=== PATIENT | female | born 1975 | race Caucasian/White ===

== ENCOUNTER 2016-05-12 06:30 | Emergency (ER) | payer OTHER ==
[~2016-05-12 06:30] MED LIST: BENA25TA4 PO; CIPR500T89 PO; COLA100C PO; DIFL150T PO; FLAG500T PO; GLYB5TAB5 PO; IBUP600T26 PO; INSULANT SC; METF1000 PO; MOM30SS PO; OXYC1TAB23 PO; OXYCO5TA PO; PERCOCET PO; PRIN10TA PO; TYLE325T5 PO; ZOFR20TA PO
[2016-05-12] MEDS ORDERED: METOCLOPRAMIDE INJ 10MG/2ML VIAL (J2765) As Ordered ONE (07:34)
[2016-05-12] MEDS ORDERED: diphenhydrAMINE INJ 50MG/ML VIAL (J1200) As Ordered ONE (07:34)
[2016-05-12 07:57] LABS: BASO # 0.2 K/mm3 (0.0-0.2); BASO % 1.4 % (0.0-1.0); EOS # 0.4 K/mm3 (0.0-0.50); EOS % 3.3 % (0.0-3.0); LARGE UNSTAINED CELL # 0.2 K/mm3 (0.0-0.4); LARGE UNSTAINED CELL % 1.8 % (0.0-4.0); LYMPH # 3.6 K/mm3 (1.5-4.5); LYMPH % 28.5 % (24.0-44.0); MEAN CORPUSCULAR HEMOGLOBIN 31.6 pg (27.0-33.0); MEAN CORPUSCULAR HGB CONC 35.6 g/dl (32.0-36.5); MEAN CORPUSCULAR VOLUME 88.8 fl (80.0-96.0); MONO # 0.5 K/mm3 (0.0-0.8); MONO % 4.2 % (0.0-5.0); NEUTROPHILS # 7.2 K/mm3 (1.8-7.7); NEUTROPHILS % 60.9 % (36.0-66.0); PLATELET COUNT, AUTOMATED 316 k/mm3 (150-450); RED CELL DISTRIBUTION WIDTH 12.6 % (11.5-14.5); WHITE BLOOD COUNT 11.9 K/mm3 (4.0-10.0)
[2016-05-12 08:25] LABS: ALBUMIN 3.7 GM/DL (3.2-5.2); ALBUMIN/GLOBULIN RATIO 1.42 (1.00-1.93); ALKALINE PHOSPHATASE 86 U/L (45-117); ALT/SGPT 23 U/L (12-78); AMYLASE 32 U/L (25-115); ANION GAP 11 MEQ/L (8-16); AST/SGOT 5 U/L (15-37); BILIRUBIN,DIRECT 0.1 MG/DL (0.0-0.2); BILIRUBIN,TOTAL 0.5 MG/DL (0.2-1.0); BLOOD UREA NITROGEN 14 MG/DL (7-18); CALCIUM LEVEL 9.1 MG/DL (8.5-10.1); CARBON DIOXIDE LEVEL 25 MEQ/L (21-32); CHLORIDE LEVEL 101 MEQ/L (98-107); CREATININE FOR GFR 0.51 MG/DL (0.55-1.02); GLOMERULAR FILTRATION RATE > 60.0 (>60); GLUCOSE, FASTING 318 MG/DL (70-105); SODIUM LEVEL 137 MEQ/L (136-145); TOTAL PROTEIN 6.3 GM/DL (6.4-8.2)
[2016-05-12] MEDS ORDERED: ISOVUE-370 76% 100ML VIAL (Q9967) As Ordered ONE (08:42)
--- NOTE | 2016-05-12 10:29 | REP ---
CT abdomen and pelvis, 05/12/2016: Indication: Appendicitis. Comparison: CT abdomen and pelvis 03/13/2016, 12/11/2015, 07/13/2012.Comparison also made with intraoperative cholangiogram 07/12/2012 Technique: Following IV contrast injection 100 ml Isovue 370 mg/ml, 3 mm continuous spiral axial sections performed through the abdomen and pelvis. Findings: Lung bases are clear bilaterally. Minimal dependent atelectasis present in the lung bases bilaterally. Liver, spleen, pancreas are unremarkable. Gallbladder is surgically absent. Adrenal glands are normal. Kidneys are without hydronephrosis or obstructing ureteral calculi. The stomach is contracted. The small bowel is of normal caliber without obstruction. Abdominal aorta is of normal course and caliber. Atherosclerotic changes are noted in the aorta. The uterus is within normal limits for age. There are a few small right ovarian follicles. There is no free fluid in cul-de-sac and no evidence of free intraperitoneal air. The colon is unremarkable. There is no free air. Appendix is without inflammation. Impression: No evidence of appendicitis. Prior cholecystectomy. Surgical clips are noted within the right upper quadrant. Signed by Shannon Cason MD 05/12/2016 06:22 P
--- NOTE | 2016-05-12 10:51 | EDDOCDS ---
Physician Documentation [facility] Name: Peggy Garcia Age: 40 yrs Sex: Female : 1975 Arrival Date: 05/12/2016 Time: 06:30 Bed 7 Private MD: Disposition: 05/12/16 10:36 Discharged to Home/Self Care. Impression: Right lower quadrant abdominal tenderness, Urinary tract infection, site not specified. - Condition is Stable. - Discharge Instructions: Urinary Tract Infection, Abdominal Pain, Women. - Prescriptions for etodolac 200 mg Oral Capsule - take 1 capsule by ORAL route 3 times per day; 30 capsule. Pyridium 200 mg Oral Tablet - take 1 tablet by ORAL route every 8 hours for 3 days; 9 tablet. Macrobid 100 mg Oral Capsule - take 100 milligram by ORAL route every 12 hours for 10 days; 20 capsule. - Medication Reconciliation, Local Pharmacy Hours form. - Follow up: Private Physician; When: Call to arrange an appointment; Reason: Further diagnostic work-up, Recheck today's complaints, Continuance of care. Follow up: Marvin Severino; When: Call to arrange an appointment; Reason: Further diagnostic work-up, Recheck today's complaints, Continuance of care. - Problem is new. - Symptoms have improved. Historical: - Allergies: No known drug Allergies; - Home Meds: 1. Lantus 100 unit/mL Sub-Q soln 36 unit nightly noncompliant 2. metformin 500 mg ER Oral (Last dose: 05/11/2016 22:00) 3. novalog Unknown after meals sliding scale - PMHx: Diabetes - NIDDM: uncontrolled; - PSHx: Tubal ligation; Tonsillectomy; Cholecystectomy; left ovary and tube removal; - Social history: Smoking status: Patient uses tobacco products, current every day smoker. No barriers to communication noted, The patient speaks fluent Ukrainian, Speaks appropriately for age, Preferred Language: Ukrainian. - Family history: Not pertinent. - : The pt / caregiver states he / she is not on anticoagulants. Home medication list is obtained from the patient. - Exposure Risk Screening:: None identified. 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 3 in. (160.02 cm) (R); Pain 8/10; 10:18 BP 142 / 75; Pulse 92; Resp 16; Temp 97.4(O); Pulse Ox 97% on R/A; Pain 8/10; kr3 06:43 Body Mass Index 30.29 (77.56 kg, 160.02 cm) lf1 MDM: 07:29 NS 0.9% 1000 ml IV at bolus once ordered. btw 07:29 IV Saline Lock ordered. btw 07:29 Undress patient appropriately for examination ordered. btw 07:29 Metoclopramide 20 mg IV at 80 mg/hr once over 15 mins ordered. btw 07:29 diphenhydrAMINE 50 mg IVP once ordered. btw 07:30 Amylase Ordered. EDMS 07:30 Basic Metabolic Profile Ordered. EDMS 07:30 CBC with Diff Ordered. EDMS 07:30 Lipase Ordered. EDMS 07:30 Liver Profile Ordered. EDMS 07:30 Urinalysis Ordered. EDMS 07:30 Urine Culture Ordered. EDMS 07:30 CT ABD & PELVIS: IV Contrast Only Ordered. EDMS 07:30 NOTHING BY MOUTH+DIET ordered. EDMS 07:33 UCG by Nursing ordered. btw 08:43 Basic Metabolic Profile Reviewed. btw 08:43 CBC with Diff Reviewed. btw 08:43 Liver Profile Reviewed. btw 08:43 Urinalysis Reviewed. btw 08:43 Amylase Reviewed. btw 08:43 Lipase Reviewed. btw 09:44 Financial registration complete. pm4 09:45 [facility] [place] Payment Agreement was scanned into [employer] and attached to record. pm4 Point of Care Testing: Urine : 08:16 hCG Reading: Negative; kr3 Ranges: Administered Medications: 07:45 Drug: NS 0.9% 1000 ml [sodium chloride 0.9 % intravenous solution] Route: IV; Rate: kr3 bolus; Site: right antecubital; 10:49 Follow up: IV Status: Infusion discontinued; IV Intake: 900ml kr3 07:45 Drug: diphenhydrAMINE 50 mg [diphenhydramine 50 mg/mL injection solution (1 mL)] Route: kr3 IVP; Site: right antecubital; 08:44 Follow up: Response: No Adverse Reaction kr3 07:48 Drug: Metoclopramide 20 mg [metoclopramide 5 mg/mL injection solution] Route: IV; Rate: kr3 80 mg/hr; Infused Over: 15 mins; Site: right antecubital; 08:44 Follow up: IV Status: Completed infusion kr3 Signatures: Dispatcher [employer] Tiff Borja RN RN kr3 Desiree Green RN RN lf1 Waqar Urbano, MARIA ELENA PA btw Josh Chery, Reg Reg pm4 The chart was reviewed and I authenticate all verbal orders and agree with the evaluation and treatment provided.Corrections: (The following items were deleted from the chart) 07:27 07:23 Accucheck ordered. delio kebede Attachments: 09:45 [facility] Payment Agreement pm4 CRISTINA
--- NOTE | 2016-05-12 10:51 | EDDOCDS ---
Nurse's Notes [facility] Name: Peggy Garcia Age: 40 yrs Sex: Female : 1975 Arrival Date: 05/12/2016 Time: 06:30 Bed 7 Private MD: Diagnosis: Right lower quadrant abdominal tenderness;Urinary tract infection, site not specified Presentation: 05/12 06:43 Presenting complaint: Patient states: Right lower quadrant pain that began at 0230 this lf1 morning with nausea and vomiting. Pt reports she took some Zofran and the nausea has improved but the pain is worse. Pain is currently 8/10 and characterized as sharp. Risk factors: the patient reports no vaginal bleeding. Adult Sepsis Screening: The patient does not have new or worsening altered mentation. Patient's respiratory rate is less than 22. 06:43 Acuity: AGUSTO Level 3 lf1 06:47 Adult Sepsis Screening: Systolic blood pressure is greater than 100. Patient has a lf1 qSOFA score of 0- Negative Sepsis Screen. Suicide/Homicide risk assessment- the patient denies having any suicidal and/or homicidal ideations and does not present with any other emotional, behavioral or mental health complaints. Status: Patient is not a septic tank servicer or dependent. Transition of care: patient was not received from another setting of care. 06:47 Method Of Arrival: Walkin/Carried/Asstd lf1 Triage Assessment: 06:49 General: Appears obese, uncomfortable, Behavior is restless. Pain: Location: right lf1 lower quadrant Pain currently is 8 out of 10 on a pain scale. Quality of pain is described as sharp. HIV screening NA for this visit Offered previously. Neurological: Level of Consciousness is awake, alert, Oriented to person, place, time. EENT: No deficits noted. Cardiovascular: Chest pain is denied. Respiratory: Airway is patent. GI: Reports lower abdominal pain, Denies nausea. : Denies burning with urination, urinary frequency. Derm: Skin is normal. Injury Description: No known injury. 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 Lantus 100 unit/mL Sub-Q soln 36 unit nightly noncompliant 2. metformin 500 mg ER Oral (Last dose: 05/11/2016 22:00) 3. novalog Unknown after meals sliding scale - PMHx: Diabetes - NIDDM: uncontrolled; - PSHx: Tubal ligation; Tonsillectomy; Cholecystectomy; left ovary and tube removal; - Social history: Smoking status: Patient uses tobacco products, current every day smoker. No barriers to communication noted, The patient speaks fluent Palauan, Speaks appropriately for age, Preferred Language: Palauan. - Family history: Not pertinent. - : The pt / caregiver states he / she is not on anticoagulants. Home medication list is obtained from the patient. - Exposure Risk Screening:: None identified. Screenin:51 Screening information is obtained from the patient. Fall risk: No risks identified. lf1 Assistance ADL's: requires no assistance with activities of daily living. Abuse/DV Screen: The patient / caregiver reports he/she is: not in a situation that causes fear, pain or injury. Nutritional screening: No deficits noted. Advance Directives: Currently, there is no health care proxy. home support is adequate. Assessment: 07:52 General: Appears uncomfortable, Behavior is cooperative. Pain: Location: right lower kr3 quadrant Pain currently is 10 out of 10 on a pain scale. Neurological: No deficits noted. Respiratory: Respiratory effort is even, unlabored. GI: Abdomen is obese, Bowel sounds present X 4 quads. Abd is soft X 4 quads Abd is tender to palpation in right lower quadrant Denies nausea since taking Zofran at 4:30. Derm: Skin is normal. 08:07 Reassessment: Patient states feeling better. Pain: Pain currently is 6 out of 10 on a kr3 pain scale. 09:30 Reassessment: Patient appears in no apparent distress at this time. Adult Sepsis kr3 Screening: The patient does not have new or worsening altered mentation. Patient's respiratory rate is less than 22. Systolic blood pressure is greater than 100. Patient has a qSOFA score of 0- Negative Sepsis Screen. Pain: Location: right lower quadrant Pain currently is 6 out of 10 on a pain scale. GI: Denies nausea. Derm: Skin is normal. 10:19 Reassessment: pain has returned, 12/16. Provider notified. Patient instructed NPO kr3 status. Pain: Location: right lower quadrant. 10:50 Reassessment: Patient states feeling better. Pain: Location: right lower quadrant Pain kr3 currently is 6 out of 10 on a pain scale. Respiratory: Respiratory effort is even, unlabored. Derm: Skin is pink, warm & dry. Vital Signs: 06:43 BP 141 / 84; Pulse 113; Resp 20; Temp 98.9(TE); Pulse Ox 99% on R/A; Weight 77.56 kg; lf1 Height 5 ft. 3 in. (160.02 cm) (R); Pain 8/10; 10:18 BP 142 / 75; Pulse 92; Resp 16; Temp 97.4(O); Pulse Ox 97% on R/A; Pain 8/10; kr3 06:43 Body Mass Index 30.29 (77.56 kg, 160.02 cm) [facility] Vitals: 06:43 Log In Time: May 12, 2016 at 06:31. [facility] ED Course: 06:31 Patient visited by Desiree Dao. lja 06:31 Patient moved to Waiting lj 06:43 Patient visited by Desiree Green RN. lf1 06:43 Patient moved to Triage 1 lf 06:44 Triage Initiated lf1 07:03 Patient moved to TR1 lf1 07:12 Patient moved to 7 lf1 07:15 Patient visited by Jf Talavera PCA. jlf 07:17 Waqar Urbano PA is PHCP. btw 07:17 Ileana Hilario MD is Attending Physician. btw 07:17 Patient visited by Waqar Urbano PA. btw 07:50 Patient visited by Jf Talavera PCA. jlf 07:52 The patient / caregiver is instructed regarding the plan of care and ED course. Patient catarina has correct armband on for positive identification. Placed in gown. Bed in low position. Call light in reach. Side rails up X 1. 07:52 Inserted saline lock: 20 gauge in right antecubital area and blood collected. The catarina patient tolerated the procedure well. 08:07 Assisted to bathroom. kr3 08:14 Urinalysis Sent. kr3 08:14 Urine Culture Sent. kr3 08:44 Patient visited by Tiff Choi RN. kr3 09:10 Patient visited by Jf Talavera PCA. jlf 09:45 [facility] [place] Agreement was scanned into [employer] and attached to record. pm4 09:51 Patient visited by Jf Talavera PCA. jlf 10:23 Patient visited by Tiff Choi RN. kr3 10:39 Marvin Severino is Referral Physician. btw 10:49 Discontinued lock intact, bleeding controlled, pressure dressing applied, No kr3 redness/swelling at site. No procedures done that require assistance. Administered Medications: 07:45 Drug: NS 0.9% 1000 ml [sodium chloride 0.9 % intravenous solution] Route: IV; Rate: kr3 bolus; Site: right antecubital; 10:49 Follow up: IV Status: Infusion discontinued; IV Intake: 900ml kr3 07:45 Drug: diphenhydrAMINE 50 mg [diphenhydramine 50 mg/mL injection solution (1 mL)] Route: kr3 IVP; Site: right antecubital; 08:44 Follow up: Response: No Adverse Reaction kr3 07:48 Drug: Metoclopramide 20 mg [metoclopramide 5 mg/mL injection solution] Route: IV; Rate: kr3 80 mg/hr; Infused Over: 15 mins; Site: right antecubital; 08:44 Follow up: IV Status: Completed infusion kr3 Point of Care Testing: Urine : 08:16 hCG Reading: Negative; kr3 Ranges: Intake: 10:49 IV: 900.00ml; Total: 900.00ml. kr3 Order Results: Lab Order: Amylase; SPEC'M 05/12/16 07:42 Test: AMYLASE; Value: 32; Range: 25-115; Units: U/L; Status: F Lab Order: Basic Metabolic Profile; SPEC'M 05/12/16 07:42 Test: GLUCOSE, FASTING; Value: 318; Range: 70-105; Abnormal: Above high normal; Units: MG/DL; Status: F Test: BLOOD UREA NITROGEN; Value: 14; Range: 7-18; Units: MG/DL; Status: F Test: CREATININE FOR GFR; Value: 0.51; Range: 0.55-1.02; Abnormal: Below low normal; Units: MG/DL; Status: F Test: GLOMERULAR FILTRATION RATE; Value: > 60.0; Range: >60; Status: F Test: SODIUM LEVEL; Value: 137; Range: 136-145; Units: MEQ/L; Status: F Test: POTASSIUM SERUM; Value: 4.0; Range: 3.5-5.1; Units: MEQ/L; Status: F Test: CHLORIDE LEVEL; Value: 101; Range: 98-107; Units: MEQ/L; Status: F Test: CARBON DIOXIDE LEVEL; Value: 25; Range: 21-32; Units: MEQ/L; Status: F Test: ANION GAP; Value: 11; Range: 8-16; Units: MEQ/L; Status: F Test: CALCIUM LEVEL; Value: 9.1; Range: 8.5-10.1; Units: MG/DL; Status: F Test Note: ; Units are mL/min/1.73 m2 Chronic Kidney Disease Staging per NKF: Stage I & II GFR >=60 Normal to Mildly Decreased Stage III GFR 30-59 Moderately Decreased Stage IV GFR 15-29 Severely Decreased Stage V GFR <15 Very Little GFR Left ESRD GFR <15 on MARINE ENGINE MACHINIST Lab Order: CBC with Diff; SPEC'M 05/12/16 07:42 Test: WHITE BLOOD COUNT; Value: 11.9; Range: 4.0-10.0; Abnormal: Above high normal; Units: K/mm3; Status: F Test: RED BLOOD COUNT; Value: 4.96; Range: 4.00-5.40; Units: M/mm3; Status: F Test: HEMOGLOBIN; Value: 15.7; Range: 12.0-16.0; Units: g/dl; Status: F Test: HEMATOCRIT; Value: 44.1; Range: 36.0-47.0; Units: %; Status: F Test: MEAN CORPUSCULAR VOLUME; Value: 88.8; Range: 80.0-96.0; Units: fl; Status: F Test: MEAN CORPUSCULAR HEMOGLOBIN; Value: 31.6; Range: 27.0-33.0; Units: pg; Status: F Test: MEAN CORPUSCULAR HGB CONC; Value: 35.6; Range: 32.0-36.5; Units: g/dl; Status: F Test: RED CELL DISTRIBUTION WIDTH; Value: 12.6; Range: 11.5-14.5; Units: %; Status: F Test: PLATELET COUNT, AUTOMATED; Value: 316; Range: 150-450; Units: k/mm3; Status: F Test: NEUTROPHILS %; Value: 60.9; Range: 36.0-66.0; Units: %; Status: F Test: LYMPH %; Value: 28.5; Range: 24.0-44.0; Units: %; Status: F Test: MONO %; Value: 4.2; Range: 0.0-5.0; Units: %; Status: F Test: EOS %; Value: 3.3; Range: 0.0-3.0; Abnormal: Above high normal; Units: %; Status: F Test: BASO %; Value: 1.4; Range: 0.0-1.0; Abnormal: Above high normal; Units: %; Status: F Test: LARGE UNSTAINED CELL %; Value: 1.8; Range: 0.0-4.0; Units: %; Status: F Test: NEUTROPHILS #; Value: 7.2; Range: 1.8-7.7; Units: K/mm3; Status: F Test: LYMPH #; Value: 3.6; Range: 1.5-4.5; Units: K/mm3; Status: F Test: MONO #; Value: 0.5; Range: 0.0-0.8; Units: K/mm3; Status: F Test: EOS #; Value: 0.4; Range: 0.0-0.50; Units: K/mm3; Status: F Test: BASO #; Value: 0.2; Range: 0.0-0.2; Units: K/mm3; Status: F Test: LARGE UNSTAINED CELL #; Value: 0.2; Range: 0.0-0.4; Units: K/mm3; Status: F Lab Order: Lipase; SPEC'M 05/12/16 07:42 Test: LIPASE; Value: 227; Range: 73-393; Units: U/L; Status: F Lab Order: Liver Profile; SPEC'M 05/12/16 07:42 Test: AST/SGOT; Value: 5; Range: 15-37; Abnormal: Below low normal; Units: U/L; Status: F Test: ALT/SGPT; Value: 23; Range: 12-78; Units: U/L; Status: F Test: ALKALINE PHOSPHATASE; Value: 86; Range: 45-117; Units: U/L; Status: F Test: BILIRUBIN,TOTAL; Value: 0.5; Range: 0.2-1.0; Units: MG/DL; Status: F Test: BILIRUBIN,DIRECT; Value: 0.1; Range: 0.0-0.2; Units: MG/DL; Status: F Test: TOTAL PROTEIN; Value: 6.3; Range: 6.4-8.2; Abnormal: Below low normal; Units: GM/DL; Status: F Test: ALBUMIN; Value: 3.7; Range: 3.2-5.2; Units: GM/DL; Status: F Test: ALBUMIN/GLOBULIN RATIO; Value: 1.42; Range: 1.00-1.93; Status: F Lab Order: Urinalysis; SPEC'M 05/12/16 08:11 Test: APPEARANCE, URINE; Value: HAZY; Range: CLEAR; Status: F Test: COLOR, URINE; Value: YELLOW; Range: YELLOW; Status: F Test: PH,URINE; Value: 6.0; Range: 5.0-9.0; Units: UNITS; Status: F Test: SPECIFIC GRAVITY URINE AUTO; Value: 1.035; Range: 1.002-1.035; Status: F Test: PROTEIN, URINE AUTO; Value: NEGATIVE; Range: NEGATIVE; Units: mg/dL; Status: F Test: GLUCOSE, URINE (UA) AUTO; Value: 3+; Range: NEGATIVE; Abnormal: Above high normal; Units: mg/dL; Status: F Test: KETONE, URINE AUTO; Value: TRACE; Range: NEGATIVE; Abnormal: Above high normal; Units: mg/dL; Status: F Test: UROBILINOGEN, URINE AUTO; Value: 0.2; Range: 0.0-2.0; Units: mg/dL; Status: F Test: BILIRUBIN, URINE AUTO; Value: NEGATIVE; Range: NEGATIVE; Status: F Test: NITRITE, URINE AUTO; Value: POSITIVE; Range: NEGATIVE; Status: F Test: LEUKOCYTE ESTERASE, URINE AUTO; Value: TRACE; Range: NEGATIVE; Abnormal: Above high normal; Status: F Test: BLOOD, URINE BLOOD; Value: NEGATIVE; Range: NEGATIVE; Status: F Test: WBC, URINE AUTO; Value: 10; Range: 0-3; Abnormal: Above high normal; Units: /HPF; Status: F Test: RBC, URINE AUTO; Value: 3; Range: 0-3; Units: /HPF; Status: F Test: BACTERIA, URINE AUTO; Value: NEGATIVE; Range: NEGATIVE; Status: F Test: SQUAMOUS EPITHELIAL CELL UR AU; Value: 5; Range: 0-6; Units: /HPF; Status: F Test: MUCUS, URINE; Value: SMALL; Range: NEGATIVE; Status: F Test: HYALINE CAST, URINE AUTO; Value: 0; Range: 0-1; Units: /LPF; Status: F Outcome: 08:55 CT Study completed. kr3 10:36 Discharge ordered by Provider. btw 10:49 Discharge Assessment: patient administered narcotics - no. The following High Risk kr3 Discharge criteria are identified: None. Discharged to home ambulatory. Condition: stable. Discharge instructions given to patient, Instructed on discharge instructions, follow up and referral plans. medication usage, Demonstrated understanding of instructions, medications, Pt was receptive of discharge instructions/ teaching. Prescriptions given X 3. Property sent home with patient. 10:50 Patient left the ED. kr3 Signatures: Tiff Choi,RN RN kr3 Desiree Green,RN RN lf1 Waqar Urbano, MARIA ELENA PA btw Jf Talavera, DUSTING AND BRUSHING MACHINE OPERATOR DUSTING AND BRUSHING MACHINE OPERATOR jlf Desiree Dao Paul, Reg Reg pm4 MTDD
--- NOTE | 2016-05-14 11:51 | EDDOCDS ---
Physician Documentation [facility] Name: Peggy Garcia Age: 40 yrs Sex: Female : 1975 Arrival Date: 05/12/2016 Time: 06:30 Bed 7 Private MD: Disposition: 05/12/16 10:36 Discharged to Home/Self Care. Impression: Right lower quadrant abdominal tenderness, Urinary tract infection, site not specified. - Condition is Stable. - Discharge Instructions: Urinary Tract Infection, Abdominal Pain, Women. - Prescriptions for etodolac 200 mg Oral Capsule - take 1 capsule by ORAL route 3 times per day; 30 capsule. Pyridium 200 mg Oral Tablet - take 1 tablet by ORAL route every 8 hours for 3 days; 9 tablet. Macrobid 100 mg Oral Capsule - take 100 milligram by ORAL route every 12 hours for 10 days; 20 capsule. - Medication Reconciliation, Local Pharmacy Hours form. - Follow up: Private Physician; When: Call to arrange an appointment; Reason: Further diagnostic work-up, Recheck today's complaints, Continuance of care. Follow up: Marvin Severino; When: Call to arrange an appointment; Reason: Further diagnostic work-up, Recheck today's complaints, Continuance of care. - Problem is new. - Symptoms have improved. Historical: - Allergies: No known drug Allergies; - Home Meds: 1. Lantus 100 unit/mL Sub-Q soln 36 unit nightly noncompliant 2. metformin 500 mg ER Oral (Last dose: 05/11/2016 22:00) 3. novalog Unknown after meals sliding scale - PMHx: Diabetes - NIDDM: uncontrolled; - PSHx: Tubal ligation; Tonsillectomy; Cholecystectomy; left ovary and tube removal; - Social history: Smoking status: Patient uses tobacco products, current every day smoker. No barriers to communication noted, The patient speaks fluent Croatian, Speaks appropriately for age, Preferred Language: Croatian. - Family history: Not pertinent. - : The pt / caregiver states he / she is not on anticoagulants. Home medication list is obtained from the patient. - Exposure Risk Screening:: None identified. 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 3 in. (160.02 cm) (R); Pain 8/10; 10:18 BP 142 / 75; Pulse 92; Resp 16; Temp 97.4(O); Pulse Ox 97% on R/A; Pain 8/10; kr3 06:43 Body Mass Index 30.29 (77.56 kg, 160.02 cm) lf1 MDM: 07:29 NS 0.9% 1000 ml IV at bolus once ordered. btw 07:29 IV Saline Lock ordered. btw 07:29 Undress patient appropriately for examination ordered. btw 07:29 Metoclopramide 20 mg IV at 80 mg/hr once over 15 mins ordered. btw 07:29 diphenhydrAMINE 50 mg IVP once ordered. btw 07:30 Amylase Ordered. EDMS 07:30 Basic Metabolic Profile Ordered. EDMS 07:30 CBC with Diff Ordered. EDMS 07:30 Lipase Ordered. EDMS 07:30 Liver Profile Ordered. EDMS 07:30 Urinalysis Ordered. EDMS 07:30 Urine Culture Ordered. EDMS 07:30 CT ABD & PELVIS: IV Contrast Only Ordered. EDMS 07:30 NOTHING BY MOUTH+DIET ordered. EDMS 07:33 UCG by Nursing ordered. btw 08:43 Basic Metabolic Profile Reviewed. btw 08:43 CBC with Diff Reviewed. btw 08:43 Liver Profile Reviewed. btw 08:43 Urinalysis Reviewed. btw 08:43 Amylase Reviewed. btw 08:43 Lipase Reviewed. btw 09:44 Financial registration complete. pm4 09:45 [place] [facility] [place] Agreement was scanned into [employer] and attached to record. pm4 14:35 T-Sheet-- Draft Copy was scanned into [employer] and attached to record. gb Point of Care Testing: Urine : 08:16 hCG Reading: Negative; kr3 Ranges: Administered Medications: 07:45 Drug: NS 0.9% 1000 ml [sodium chloride 0.9 % intravenous solution] Route: IV; Rate: kr3 bolus; Site: right antecubital; 10:49 Follow up: IV Status: Infusion discontinued; IV Intake: 900ml kr3 07:45 Drug: diphenhydrAMINE 50 mg [diphenhydramine 50 mg/mL injection solution (1 mL)] Route: kr3 IVP; Site: right antecubital; 08:44 Follow up: Response: No Adverse Reaction kr3 07:48 Drug: Metoclopramide 20 mg [metoclopramide 5 mg/mL injection solution] Route: IV; Rate: kr3 80 mg/hr; Infused Over: 15 mins; Site: right antecubital; 08:44 Follow up: IV Status: Completed infusion kr3 Signatures: Dispatcher [employer] EDDasha López, Reg Reg gb Tiff Choi,RN RN kr3 Desiree GreenRN RN lf1 Waqar Urbano PA PA btw Josh Chery, Reg Reg pm4 The chart was reviewed and I authenticate all verbal orders and agree with the evaluation and treatment provided.Corrections: (The following items were deleted from the chart) 07:27 07:23 Accucheck ordered. delio kebede Attachments: 09:45 [place] [place] Agreement pm4 14:35 T-Sheet-- Draft Copy gb Chart [facility]
--- NOTE | 2016-05-14 11:51 | EDDOCDS ---
Physician Documentation [facility] Name: Peggy Garcia Age: 40 yrs Sex: Female : 1975 Arrival Date: 05/12/2016 Time: 06:30 Bed 7 Private MD: Disposition: 05/12/16 10:36 Discharged to Home/Self Care. Impression: Right lower quadrant abdominal tenderness, Urinary tract infection, site not specified. - Condition is Stable. - Discharge Instructions: Urinary Tract Infection, Abdominal Pain, Women. - Prescriptions for etodolac 200 mg Oral Capsule - take 1 capsule by ORAL route 3 times per day; 30 capsule. Pyridium 200 mg Oral Tablet - take 1 tablet by ORAL route every 8 hours for 3 days; 9 tablet. Macrobid 100 mg Oral Capsule - take 100 milligram by ORAL route every 12 hours for 10 days; 20 capsule. - Medication Reconciliation, Local Pharmacy Hours form. - Follow up: Private Physician; When: Call to arrange an appointment; Reason: Further diagnostic work-up, Recheck today's complaints, Continuance of care. Follow up: Marvin Severino; When: Call to arrange an appointment; Reason: Further diagnostic work-up, Recheck today's complaints, Continuance of care. - Problem is new. - Symptoms have improved. Historical: - Allergies: No known drug Allergies; - Home Meds: 1. Lantus 100 unit/mL Sub-Q soln 36 unit nightly noncompliant 2. metformin 500 mg ER Oral (Last dose: 05/11/2016 22:00) 3. novalog Unknown after meals sliding scale - PMHx: Diabetes - NIDDM: uncontrolled; - PSHx: Tubal ligation; Tonsillectomy; Cholecystectomy; left ovary and tube removal; - Social history: Smoking status: Patient uses tobacco products, current every day smoker. No barriers to communication noted, The patient speaks fluent Tristanian, Speaks appropriately for age, Preferred Language: Tristanian. - Family history: Not pertinent. - : The pt / caregiver states he / she is not on anticoagulants. Home medication list is obtained from the patient. - Exposure Risk Screening:: None identified. TIP PRINTER: 05/12 06:43 3, Living 3, LMP 04/21/2016 lf1 Vital Signs: 06:43 BP 141 / 84; Pulse 113; Resp 20; Temp 98.9(TE); Pulse Ox 99% on R/A; Weight 77.56 kg / lf1 170.99 lbs; Height 5 ft. 3 in. (160.02 cm) (R); Pain 8/10; 10:18 BP 142 / 75; Pulse 92; Resp 16; Temp 97.4(O); Pulse Ox 97% on R/A; Pain 8/10; kr3 06:43 Body Mass Index 30.29 (77.56 kg, 160.02 cm) lf1 MDM: 07:29 NS 0.9% 1000 ml IV at bolus once ordered. btw 07:29 IV Saline Lock ordered. btw 07:29 Undress patient appropriately for examination ordered. btw 07:29 Metoclopramide 20 mg IV at 80 mg/hr once over 15 mins ordered. btw 07:29 diphenhydrAMINE 50 mg IVP once ordered. btw 07:30 Amylase Ordered. EDMS 07:30 Basic Metabolic Profile Ordered. EDMS 07:30 CBC with Diff Ordered. EDMS 07:30 Lipase Ordered. EDMS 07:30 Liver Profile Ordered. EDMS 07:30 Urinalysis Ordered. EDMS 07:30 Urine Culture Ordered. EDMS 07:30 CT ABD & PELVIS: IV Contrast Only Ordered. EDMS 07:30 NOTHING BY MOUTH+DIET ordered. EDMS 07:33 UCG by Nursing ordered. btw 08:43 Basic Metabolic Profile Reviewed. btw 08:43 CBC with Diff Reviewed. btw 08:43 Liver Profile Reviewed. btw 08:43 Urinalysis Reviewed. btw 08:43 Amylase Reviewed. btw 08:43 Lipase Reviewed. btw 09:44 Financial registration complete. pm4 09:45 [place] Payment Agreement was scanned into Robert Applebaum MD and attached to record. pm4 14:35 T-Sheet-- Draft Copy was scanned into Robert Applebaum MD and attached to record. gb Point of Care Testing: Urine : 08:16 hCG Reading: Negative; kr3 Ranges: Administered Medications: 07:45 Drug: NS 0.9% 1000 ml [sodium chloride 0.9 % intravenous solution] Route: IV; Rate: kr3 bolus; Site: right antecubital; 10:49 Follow up: IV Status: Infusion discontinued; IV Intake: 900ml kr3 07:45 Drug: diphenhydrAMINE 50 mg [diphenhydramine 50 mg/mL injection solution (1 mL)] Route: kr3 IVP; Site: right antecubital; 08:44 Follow up: Response: No Adverse Reaction kr3 07:48 Drug: Metoclopramide 20 mg [metoclopramide 5 mg/mL injection solution] Route: IV; Rate: kr3 80 mg/hr; Infused Over: 15 mins; Site: right antecubital; 08:44 Follow up: IV Status: Completed infusion kr3 Signatures: Dispatcher [employer] EDDasha López, Reg Reg gb Tiff Choi,RN RN kr3 Desiree GreenRN RN lf1 Waqar Urbano PA PA btw Josh Chery, Reg Reg pm4 The chart was reviewed and I authenticate all verbal orders and agree with the evaluation and treatment provided.Corrections: (The following items were deleted from the chart) 07:27 07:23 Accucheck ordered. delio kebede Attachments: 09:45 [facility] Payment Agreement pm4 14:35 T-Sheet-- Draft Copy gb Chart Complete [facility]
--- NOTE | 2016-05-14 11:51 | EDDOCDS ---
Nurse's Notes [facility] Name: Peggy Garcia Age: 40 yrs Sex: Female : 1975 Arrival Date: 05/12/2016 Time: 06:30 Bed 7 Private MD: Diagnosis: Right lower quadrant abdominal tenderness;Urinary tract infection, site not specified Presentation: 05/12 06:43 Presenting complaint: Patient states: Right lower quadrant pain that began at 0230 this lf1 morning with nausea and vomiting. Pt reports she took some Zofran and the nausea has improved but the pain is worse. Pain is currently 8/10 and characterized as sharp. Risk factors: the patient reports no vaginal bleeding. Adult Sepsis Screening: The patient does not have new or worsening altered mentation. Patient's respiratory rate is less than 22. 06:43 Acuity: AGUSTO Level 3 lf1 06:47 Adult Sepsis Screening: Systolic blood pressure is greater than 100. Patient has a lf1 qSOFA score of 0- Negative Sepsis Screen. Suicide/Homicide risk assessment- the patient denies having any suicidal and/or homicidal ideations and does not present with any other emotional, behavioral or mental health complaints. Status: Patient is not a food service assistant or dependent. Transition of care: patient was not received from another setting of care. 06:47 Method Of Arrival: Walkin/Carried/Asstd lf1 Triage Assessment: 06:49 General: Appears obese, uncomfortable, Behavior is restless. Pain: Location: right lf1 lower quadrant Pain currently is 8 out of 10 on a pain scale. Quality of pain is described as sharp. HIV screening NA for this visit Offered previously. Neurological: Level of Consciousness is awake, alert, Oriented to person, place, time. EENT: No deficits noted. Cardiovascular: Chest pain is denied. Respiratory: Airway is patent. GI: Reports lower abdominal pain, Denies nausea. : Denies burning with urination, urinary frequency. Derm: Skin is normal. Injury Description: No known injury. TREER: 06:43 3, Living 3, LMP 04/21/2016 lf1 Historical: - Allergies: No known drug Allergies; - Home Meds: 1. Lantus 100 unit/mL Sub-Q soln 36 unit nightly noncompliant 2. metformin 500 mg ER Oral (Last dose: 05/11/2016 22:00) 3. novalog Unknown after meals sliding scale - PMHx: Diabetes - NIDDM: uncontrolled; - PSHx: Tubal ligation; Tonsillectomy; Cholecystectomy; left ovary and tube removal; - Social history: Smoking status: Patient uses tobacco products, current every day smoker. No barriers to communication noted, The patient speaks fluent Niuean, Speaks appropriately for age, Preferred Language: Niuean. - Family history: Not pertinent. - : The pt / caregiver states he / she is not on anticoagulants. Home medication list is obtained from the patient. - Exposure Risk Screening:: None identified. Screenin:51 Screening information is obtained from the patient. Fall risk: No risks identified. lf1 Assistance ADL's: requires no assistance with activities of daily living. Abuse/DV Screen: The patient / caregiver reports he/she is: not in a situation that causes fear, pain or injury. Nutritional screening: No deficits noted. Advance Directives: Currently, there is no health care proxy. home support is adequate. Assessment: 07:52 General: Appears uncomfortable, Behavior is cooperative. Pain: Location: right lower kr3 quadrant Pain currently is 10 out of 10 on a pain scale. Neurological: No deficits noted. Respiratory: Respiratory effort is even, unlabored. GI: Abdomen is obese, Bowel sounds present X 4 quads. Abd is soft X 4 quads Abd is tender to palpation in right lower quadrant Denies nausea since taking Zofran at 4:30. Derm: Skin is normal. 08:07 Reassessment: Patient states feeling better. Pain: Pain currently is 6 out of 10 on a kr3 pain scale. 09:30 Reassessment: Patient appears in no apparent distress at this time. Adult Sepsis kr3 Screening: The patient does not have new or worsening altered mentation. Patient's respiratory rate is less than 22. Systolic blood pressure is greater than 100. Patient has a qSOFA score of 0- Negative Sepsis Screen. Pain: Location: right lower quadrant Pain currently is 6 out of 10 on a pain scale. GI: Denies nausea. Derm: Skin is normal. 10:19 Reassessment: pain has returned, 12/16. Provider notified. Patient instructed NPO kr3 status. Pain: Location: right lower quadrant. 10:50 Reassessment: Patient states feeling better. Pain: Location: right lower quadrant Pain kr3 currently is 6 out of 10 on a pain scale. Respiratory: Respiratory effort is even, unlabored. Derm: Skin is pink, warm & dry. Vital Signs: 06:43 BP 141 / 84; Pulse 113; Resp 20; Temp 98.9(TE); Pulse Ox 99% on R/A; Weight 77.56 kg; lf1 Height 5 ft. 3 in. (160.02 cm) (R); Pain 8/10; 10:18 BP 142 / 75; Pulse 92; Resp 16; Temp 97.4(O); Pulse Ox 97% on R/A; Pain 8/10; kr3 06:43 Body Mass Index 30.29 (77.56 kg, 160.02 cm) [facility] Vitals: 06:43 Log In Time: May 12, 2016 at 06:31. [facility] ED Course: 06:31 Patient visited by Desiree Dao. lja 06:31 Patient moved to Waiting lj 06:43 Patient visited by Desiree Green RN. lf1 06:43 Patient moved to Triage 1 lf 06:44 Triage Initiated lf1 07:03 Patient moved to TR1 lf1 07:12 Patient moved to 7 lf1 07:15 Patient visited by Jf Talavera PCA. jlf 07:17 Waqar Urbano PA is PHCP. btw 07:17 Ileana Hilario MD is Attending Physician. btw 07:17 Patient visited by Waqar Urbano PA. btw 07:50 Patient visited by Jf Talavera PCA. jlf 07:52 The patient / caregiver is instructed regarding the plan of care and ED course. Patient catarina has correct armband on for positive identification. Placed in gown. Bed in low position. Call light in reach. Side rails up X 1. 07:52 Inserted saline lock: 20 gauge in right antecubital area and blood collected. The catarina patient tolerated the procedure well. 08:07 Assisted to bathroom. kr3 08:14 Urinalysis Sent. kr3 08:14 Urine Culture Sent. kr3 08:44 Patient visited by Tiff Choi RN. kr3 09:10 Patient visited by Jf Talavera PCA. jlf 09:45 [facility] Payment Agreement was scanned into [employer] and attached to record. pm4 09:51 Patient visited by Jf Talavera PCA. jlf 10:23 Patient visited by Tiff Choi RN. kr3 10:39 Marvin Severino is Referral Physician. btw 10:49 Discontinued lock intact, bleeding controlled, pressure dressing applied, No kr3 redness/swelling at site. No procedures done that require assistance. 11:10 CT ABD & PELVIS: IV Contrast Only Returned. EDMS 14:35 T-Sheet-- Draft Copy was scanned into [employer] and attached to record. gb Administered Medications: 07:45 Drug: NS 0.9% 1000 ml [sodium chloride 0.9 % intravenous solution] Route: IV; Rate: kr3 bolus; Site: right antecubital; 10:49 Follow up: IV Status: Infusion discontinued; IV Intake: 900ml kr3 07:45 Drug: diphenhydrAMINE 50 mg [diphenhydramine 50 mg/mL injection solution (1 mL)] Route: kr3 IVP; Site: right antecubital; 08:44 Follow up: Response: No Adverse Reaction kr3 07:48 Drug: Metoclopramide 20 mg [metoclopramide 5 mg/mL injection solution] Route: IV; Rate: kr3 80 mg/hr; Infused Over: 15 mins; Site: right antecubital; 08:44 Follow up: IV Status: Completed infusion kr3 Point of Care Testing: Urine : 08:16 hCG Reading: Negative; kr3 Ranges: Intake: 10:49 IV: 900.00ml; Total: 900.00ml. kr3 Order Results: Lab Order: Amylase; SPEC'M 05/12/16 07:42 Test: AMYLASE; Value: 32; Range: 25-115; Units: U/L; Status: F Lab Order: Basic Metabolic Profile; SPEC'M 05/12/16 07:42 Test: GLUCOSE, FASTING; Value: 318; Range: 70-105; Abnormal: Above high normal; Units: MG/DL; Status: F Test: BLOOD UREA NITROGEN; Value: 14; Range: 7-18; Units: MG/DL; Status: F Test: CREATININE FOR GFR; Value: 0.51; Range: 0.55-1.02; Abnormal: Below low normal; Units: MG/DL; Status: F Test: GLOMERULAR FILTRATION RATE; Value: > 60.0; Range: >60; Status: F Test: SODIUM LEVEL; Value: 137; Range: 136-145; Units: MEQ/L; Status: F Test: POTASSIUM SERUM; Value: 4.0; Range: 3.5-5.1; Units: MEQ/L; Status: F Test: CHLORIDE LEVEL; Value: 101; Range: 98-107; Units: MEQ/L; Status: F Test: CARBON DIOXIDE LEVEL; Value: 25; Range: 21-32; Units: MEQ/L; Status: F Test: ANION GAP; Value: 11; Range: 8-16; Units: MEQ/L; Status: F Test: CALCIUM LEVEL; Value: 9.1; Range: 8.5-10.1; Units: MG/DL; Status: F Test Note: ; Units are mL/min/1.73 m2 Chronic Kidney Disease Staging per NKF: Stage I & II GFR >=60 Normal to Mildly Decreased Stage III GFR 30-59 Moderately Decreased Stage IV GFR 15-29 Severely Decreased Stage V GFR <15 Very Little GFR Left ESRD GFR <15 on REFINING EQUIPMENT OPERATOR Lab Order: CBC with Diff; SPEC'M 05/12/16 07:42 Test: WHITE BLOOD COUNT; Value: 11.9; Range: 4.0-10.0; Abnormal: Above high normal; Units: K/mm3; Status: F Test: RED BLOOD COUNT; Value: 4.96; Range: 4.00-5.40; Units: M/mm3; Status: F Test: HEMOGLOBIN; Value: 15.7; Range: 12.0-16.0; Units: g/dl; Status: F Test: HEMATOCRIT; Value: 44.1; Range: 36.0-47.0; Units: %; Status: F Test: MEAN CORPUSCULAR VOLUME; Value: 88.8; Range: 80.0-96.0; Units: fl; Status: F Test: MEAN CORPUSCULAR HEMOGLOBIN; Value: 31.6; Range: 27.0-33.0; Units: pg; Status: F Test: MEAN CORPUSCULAR HGB CONC; Value: 35.6; Range: 32.0-36.5; Units: g/dl; Status: F Test: RED CELL DISTRIBUTION WIDTH; Value: 12.6; Range: 11.5-14.5; Units: %; Status: F Test: PLATELET COUNT, AUTOMATED; Value: 316; Range: 150-450; Units: k/mm3; Status: F Test: NEUTROPHILS %; Value: 60.9; Range: 36.0-66.0; Units: %; Status: F Test: LYMPH %; Value: 28.5; Range: 24.0-44.0; Units: %; Status: F Test: MONO %; Value: 4.2; Range: 0.0-5.0; Units: %; Status: F Test: EOS %; Value: 3.3; Range: 0.0-3.0; Abnormal: Above high normal; Units: %; Status: F Test: BASO %; Value: 1.4; Range: 0.0-1.0; Abnormal: Above high normal; Units: %; Status: F Test: LARGE UNSTAINED CELL %; Value: 1.8; Range: 0.0-4.0; Units: %; Status: F Test: NEUTROPHILS #; Value: 7.2; Range: 1.8-7.7; Units: K/mm3; Status: F Test: LYMPH #; Value: 3.6; Range: 1.5-4.5; Units: K/mm3; Status: F Test: MONO #; Value: 0.5; Range: 0.0-0.8; Units: K/mm3; Status: F Test: EOS #; Value: 0.4; Range: 0.0-0.50; Units: K/mm3; Status: F Test: BASO #; Value: 0.2; Range: 0.0-0.2; Units: K/mm3; Status: F Test: LARGE UNSTAINED CELL #; Value: 0.2; Range: 0.0-0.4; Units: K/mm3; Status: F Lab Order: Lipase; SPEC'M 05/12/16 07:42 Test: LIPASE; Value: 227; Range: 73-393; Units: U/L; Status: F Lab Order: Liver Profile; SPEC'M 05/12/16 07:42 Test: AST/SGOT; Value: 5; Range: 15-37; Abnormal: Below low normal; Units: U/L; Status: F Test: ALT/SGPT; Value: 23; Range: 12-78; Units: U/L; Status: F Test: ALKALINE PHOSPHATASE; Value: 86; Range: 45-117; Units: U/L; Status: F Test: BILIRUBIN,TOTAL; Value: 0.5; Range: 0.2-1.0; Units: MG/DL; Status: F Test: BILIRUBIN,DIRECT; Value: 0.1; Range: 0.0-0.2; Units: MG/DL; Status: F Test: TOTAL PROTEIN; Value: 6.3; Range: 6.4-8.2; Abnormal: Below low normal; Units: GM/DL; Status: F Test: ALBUMIN; Value: 3.7; Range: 3.2-5.2; Units: GM/DL; Status: F Test: ALBUMIN/GLOBULIN RATIO; Value: 1.42; Range: 1.00-1.93; Status: F Lab Order: Urinalysis; SPEC'M 05/12/16 08:11 Test: APPEARANCE, URINE; Value: HAZY; Range: CLEAR; Status: F Test: COLOR, URINE; Value: YELLOW; Range: YELLOW; Status: F Test: PH,URINE; Value: 6.0; Range: 5.0-9.0; Units: UNITS; Status: F Test: SPECIFIC GRAVITY URINE AUTO; Value: 1.035; Range: 1.002-1.035; Status: F Test: PROTEIN, URINE AUTO; Value: NEGATIVE; Range: NEGATIVE; Units: mg/dL; Status: F Test: GLUCOSE, URINE (UA) AUTO; Value: 3+; Range: NEGATIVE; Abnormal: Above high normal; Units: mg/dL; Status: F Test: KETONE, URINE AUTO; Value: TRACE; Range: NEGATIVE; Abnormal: Above high normal; Units: mg/dL; Status: F Test: UROBILINOGEN, URINE AUTO; Value: 0.2; Range: 0.0-2.0; Units: mg/dL; Status: F Test: BILIRUBIN, URINE AUTO; Value: NEGATIVE; Range: NEGATIVE; Status: F Test: NITRITE, URINE AUTO; Value: POSITIVE; Range: NEGATIVE; Status: F Test: LEUKOCYTE ESTERASE, URINE AUTO; Value: TRACE; Range: NEGATIVE; Abnormal: Above high normal; Status: F Test: BLOOD, URINE BLOOD; Value: NEGATIVE; Range: NEGATIVE; Status: F Test: WBC, URINE AUTO; Value: 10; Range: 0-3; Abnormal: Above high normal; Units: /HPF; Status: F Test: RBC, URINE AUTO; Value: 3; Range: 0-3; Units: /HPF; Status: F Test: BACTERIA, URINE AUTO; Value: NEGATIVE; Range: NEGATIVE; Status: F Test: SQUAMOUS EPITHELIAL CELL UR AU; Value: 5; Range: 0-6; Units: /HPF; Status: F Test: MUCUS, URINE; Value: SMALL; Range: NEGATIVE; Status: F Test: HYALINE CAST, URINE AUTO; Value: 0; Range: 0-1; Units: /LPF; Status: F Lab Order: Urine Culture; SPEC'M 05/12/16 08:11 Test: URINE CULTURE; Value: ORGANISM 1: PANTOEA SPECIES; Status: F Test: URINE CULTURE; Value: PANTOEA SPECIES; Status: F Test: URINE CULTURE; Value: COLONY COUNT CFU/ml >100,000; Status: F Test: URINE CULTURE; Value: SUSNA 1 Susceptibility standards are not available for; Status: F Test: URINE CULTURE; Value: SUSNA PANAGG Pantoea agglomerans and Pantoea species.; Status: F Radiology Order: CT ABD & PELVIS: IV Contrast Only Test: CT ABD & PELVIS: IV Contrast Only REASON FOR EXAMINATION: Appendicitis; CT abdomen and pelvis, 05/12/2016:; ; Indication: Appendicitis.; ; Comparison: CT abdomen and pelvis 03/13/2016, 12/11/2015, 07/13/2012.Comparison; also made with intraoperative cholangiogram 07/12/2012; ; Technique: Following IV contrast injection 100 ml Isovue 370 mg/ml, 3 mm; continuous spiral axial sections performed through the abdomen and pelvis.; ; Findings: Lung bases are clear bilaterally. Minimal dependent atelectasis; present in the lung bases bilaterally.; ; Liver, spleen, pancreas are unremarkable. Gallbladder is surgically absent.; Adrenal glands are normal. Kidneys are without hydronephrosis or obstructing; ureteral calculi. The stomach is contracted. The small bowel is of normal; caliber without obstruction. Abdominal aorta is of normal course and caliber.; Atherosclerotic changes are noted in the aorta.; ; The uterus is within normal limits for age. There are a few small right ovarian; follicles. There is no free fluid in cul-de-sac and no evidence of free; intraperitoneal air.; ; The colon is unremarkable. There is no free air. Appendix is without; inflammation.; ; Impression:; ; No evidence of appendicitis.; ; Prior cholecystectomy. Surgical clips are noted within the right upper; quadrant.; ; ; Signed by; Shannon Cason MD 05/12/2016 06:22 P; Outcome: 08:55 CT Study completed. 3 10:36 Discharge ordered by Provider. [facility] 10:49 Discharge Assessment: patient administered narcotics - no. The following High Risk kr3 Discharge criteria are identified: None. Discharged to home ambulatory. Condition: stable. Discharge instructions given to patient, Instructed on discharge instructions, follow up and referral plans. medication usage, Demonstrated understanding of instructions, medications, Pt was receptive of discharge instructions/ teaching. Prescriptions given X 3. Property sent home with patient. 10:50 Patient left the ED. 3 Signatures: Dispatcher [employer] EDMS Dasha Gracia, Reg Reg gb Tiff Choi,RN RN kr3 Desiree Green,RN RN lf1 Waqar Urbano, MARIA ELENA PA btw Jf Talavera, STEEL WORKER STEEL WORKER jlf Desiree Dao Paul, Reg Reg pm4 Chart Complete MTDD
== END 2016-05-12 10:50 | disposition home or self-care (01) ==
LOC: M ED 06:30
DX: N30.90 Cystitis, unspecified without hematuria (principal); E11.9 Type 2 diabetes mellitus without complications; Z79.84 Long term (current) use of oral hypoglycemic drugs; Z79.4 Long term (current) use of insulin; F17.210 Nicotine dependence, cigarettes, uncomplicated
CPT/HCPCS: 36415; 74177; 80048; 80076; 81001; 81025; 82150; 83690; 85025; 87088; 96361; 96365; 96375; 99284; J1200; J2765; Q9967

== ENCOUNTER → 2016-05-26 | Outpatient (CLI) | payer OTHER ==
[2016-05-26 19:49] LABS: ALBUMIN 3.7 GM/DL (3.2-5.2); ALBUMIN/GLOBULIN RATIO 1.28 (1.00-1.93); ALKALINE PHOSPHATASE 94 U/L (45-117); ALT/SGPT 16 U/L (12-78); AMYLASE 34 U/L (25-115); ANION GAP 12 MEQ/L (8-16); AST/SGOT < 3 U/L (15-37); BILIRUBIN,TOTAL 0.4 MG/DL (0.2-1.0); BLOOD UREA NITROGEN 17 MG/DL (7-18); CALCIUM LEVEL 9.1 MG/DL (8.5-10.1); CARBON DIOXIDE LEVEL 26 MEQ/L (21-32); CHLORIDE LEVEL 101 MEQ/L (98-107); GLOMERULAR FILTRATION RATE > 60.0 (>60); GLUCOSE, FASTING 272 MG/DL (70-105); POTASSIUM SERUM 3.9 MEQ/L (3.5-5.1); SODIUM LEVEL 139 MEQ/L (136-145); TOTAL PROTEIN 6.6 GM/DL (6.4-8.2)
[2016-05-26 20:10] LABS: MEAN CORPUSCULAR HEMOGLOBIN 31.2 pg (27.0-33.0); MEAN CORPUSCULAR HGB CONC 33.9 g/dl (32.0-36.5); MEAN CORPUSCULAR VOLUME 92.1 fl (80.0-96.0); RED CELL DISTRIBUTION WIDTH 12.7 % (11.5-14.5); WHITE BLOOD COUNT 9.7 K/mm3 (4.0-10.0)
[2016-05-27 10:05] LABS: CONTROL LINE HPYORI INT CTR LINE PRESENT
== END ==
LOC: M LAB 16:19
PROVIDERS: ATTEND Obstetrics & Gynecology
DX: R10.10 Upper abdominal pain, unspecified (principal)

== ENCOUNTER → 2016-05-26 | Outpatient (CLI) | payer OTHER ==
[2016-05-26 20:11] LABS: BASO # 0.2 K/mm3 (0.0-0.2); BASO % 1.5 % (0.0-1.0); EOS # 0.3 K/mm3 (0.0-0.50); EOS % 2.6 % (0.0-3.0); LARGE UNSTAINED CELL # 0.1 K/mm3 (0.0-0.4); LARGE UNSTAINED CELL % 1.2 % (0.0-4.0); LYMPH # 3.1 K/mm3 (1.5-4.5); LYMPH % 29.5 % (24.0-44.0); MEAN CORPUSCULAR HEMOGLOBIN 31.6 pg (27.0-33.0); MEAN CORPUSCULAR HGB CONC 34.4 g/dl (32.0-36.5); MEAN CORPUSCULAR VOLUME 91.8 fl (80.0-96.0); MONO # 0.5 K/mm3 (0.0-0.8); MONO % 4.4 % (0.0-5.0); NEUTROPHILS # 6.2 K/mm3 (1.8-7.7); NEUTROPHILS % 60.8 % (36.0-66.0); PLATELET COUNT, AUTOMATED 321 k/mm3 (150-450); RED CELL DISTRIBUTION WIDTH 12.7 % (11.5-14.5); WHITE BLOOD COUNT 10.1 K/mm3 (4.0-10.0)
[2016-05-26 20:44] LABS: ANION GAP 14 MEQ/L (8-16); BLOOD UREA NITROGEN 18 MG/DL (7-18); CALCIUM LEVEL 8.9 MG/DL (8.5-10.1); CARBON DIOXIDE LEVEL 26 MEQ/L (21-32); CHLORIDE LEVEL 100 MEQ/L (98-107); CREATININE FOR GFR 0.45 MG/DL (0.55-1.02); GLOMERULAR FILTRATION RATE > 60.0 (>60); GLUCOSE, FASTING 268 MG/DL (70-105); POTASSIUM SERUM 3.9 MEQ/L (3.5-5.1); SODIUM LEVEL 140 MEQ/L (136-145)
== END ==
LOC: M LAB 16:23
PROVIDERS: ATTEND Student in an Organized Health Care Education/Training Program
DX: N39.0 Urinary tract infection, site not specified (principal); R10.13 Epigastric pain; R53.1 Weakness

== ENCOUNTER → 2016-06-23 | Outpatient (CLI) | payer OTHER ==
[~2016-06-23] MED LIST changes: +E-Z-GAS II EFFERVESCENT PACKET (SODIUM BICARB./CITRIC ACID/SIMETHICONE) As Ordered ONE; +E-Z-HD 98% w/w 340GM SUSP BTL As Ordered ONE; +E-Z-PAQUE 96% w/w SUSP 176GM BTL As Ordered ONE; +INSUH10VL SC; +METF500T PO; +TOUJ1.2I SC
--- NOTE | 2016-06-23 16:50 | REP ---
UPPER GI, AIR CONTRAST: The procedure was performed under the direct supervision of Dr. Toth. The images were reviewed with Dr. Toth. The real estate development manager film shows no organomegaly or pathological masses. The intestinal gas pattern is nonspecific. There are surgical clips noted in the right upper quadrant. Liquid barium and gas-producing granules were given in the erect position as well as liquid barium in the prone oblique position in order to perform a double-contrast upper GI examination. The oral and pharyngeal stages of deglutition are unremarkable. Esophageal transport is prompt and efficient and there is no esophagitis, stricture, mucosal ring, or hiatal hernia. Gastroesophageal reflux is not demonstrated on this examination. The stomach armendariz are normally outlined. The rugal folds are smooth and regular. There is no gastritis, neoplasm, or ulcer disease. Within the duodenal bulb there are a few small punctate barium collections which may represent yasemin ulcers. There are prominent folds in the post-bulbar duodenum which may represent duodenitis. The visualized portion of the proximal small bowel appears normal in course and caliber. IMPRESSION: Within the duodenal bulb there are a few small punctate barium collections which may represent tiny ulcers. In the post-bulbar duodenum there are prominence folds which may represent duodenitis. 2 minutes and 29 seconds of fluoroscopic time was utilized for this procedure. Reviewed by LLOYD Ponce 06/24/2016 04:33 PEdited and Signed by Dwaine Toth MD 06/25/2016 06:23 P
== END ==
LOC: M RAD 09:05
PROVIDERS: ATTEND Surgery
DX: R10.13 Epigastric pain (principal)

== ENCOUNTER → 2016-07-01 | Outpatient (CLI) | payer OTHER ==
[~2016-07-01] VITALS: Ht 160 cm; Wt 68.0 kg
[~2016-07-01] MED LIST changes: -E-Z-GAS II EFFERVESCENT PACKET (SODIUM BICARB./CITRIC ACID/SIMETHICONE) As Ordered ONE; -E-Z-HD 98% w/w 340GM SUSP BTL As Ordered ONE; -E-Z-PAQUE 96% w/w SUSP 176GM BTL As Ordered ONE; +LIDOCAINE 2% INJ 100 MG/5 ML SDV (FOR ANES.) As Ordered ONE; +NS 1,000 ML IV SCH; +PROPOFOL 500 MG/50 ML VIAL As Ordered ONE
--- NOTE | 2016-07-01 10:38 | ROOR ---
Patient Name: Peggy Garcia Procedure Date: 07/01/2016 9:50 AM Date of : 1975 Age: 41 Room: [facility] Gender: Female Note Status: Finalized Procedure: Upper GI endoscopy Indications: Epigastric abdominal pain Providers: Kai Chavira Jr, MD Referring MD: Socorro Oviedo DO Requesting Provider: Medicines: Propofol per Anesthesia Complications: No immediate complications. Procedure: Pre-Anesthesia Assessment: - Prior to the procedure, a History and Physical was performed, and patient medications and allergies were reviewed. The patient is competent. The risks and benefits of the procedure and the sedation options and risks were discussed with the patient. All questions were answered and informed consent was obtained. Patient identification and proposed procedure were verified by the physician and the nurse in the pre-procedure area and in the procedure room. Mental Status Examination: alert and oriented. Airway Examination: normal oropharyngeal airway and neck mobility. Respiratory Examination: clear to auscultation. CV Examination: normal. ASA Grade Assessment: II - A patient with mild systemic disease. After reviewing the risks and benefits, the patient was deemed in satisfactory condition to undergo the procedure. The anesthesia plan was to use moderate sedation / analgesia (conscious sedation). Immediately prior to administration of medications, the patient was re-assessed for adequacy to receive sedatives. The heart rate, respiratory rate, oxygen saturations, blood pressure, adequacy of pulmonary ventilation, and response to care were monitored throughout the procedure. The physical status of the patient was re-assessed after the procedure. The Endoscope was introduced through the mouth, and advanced to the second part of duodenum. The patient tolerated the procedure well. The upper GI endoscopy was accomplished without difficulty. Findings: The upper third of the esophagus, middle third of the esophagus and lower third of the esophagus were normal. Non-severe esophagitis was found at the gastroesophageal junction. Diffuse mild inflammation characterized by congestion (edema), erythema and granularity was found in the cardia, in the gastric fundus, in the gastric body, in the gastric antrum, in the prepyloric region of the stomach and at the pylorus. Biopsies were taken with a cold forceps for histology. The first portion of the duodenum and second portion of the duodenum were normal. Patchy mildly erythematous mucosa and with no stigmata of bleeding was found in the duodenal bulb. Impression: - Normal upper third of esophagus, middle third of esophagus and lower third of esophagus. - Non-severe reflux esophagitis. - Gastritis. Biopsied. - Normal first portion of the duodenum and second portion of the duodenum. - Erythematous duodenopathy. Recommendation: - Return to my office in 2 weeks. Kai Chavira MD Kai Chavira Jr, MD 07/01/2016 10:38:07 AM This report has been signed electronically. Number of Addenda: 0 Note Initiated On: 07/01/2016 9:50 AM Estimated Blood Loss: Estimated blood loss: none.
[2016-07-01 11:05] VITALS: BP 146/80
== END | disposition home or self-care (01) ==
LOC: M OPP 09:49
PROVIDERS: ATTEND Surgery
DX: K29.70 Gastritis, unspecified, without bleeding (principal); K31.89 Other diseases of stomach and duodenum; K21.0 Gastro-esophageal reflux disease with esophagitis; J45.909 Unspecified asthma, uncomplicated; E11.9 Type 2 diabetes mellitus without complications; F17.200 Nicotine dependence, unspecified, uncomplicated; F17.228 Nicotine dependence, chewing tobacco, with other nicotine-induced disorders; Z79.899 Other long term (current) drug therapy; Z79.1 Long term (current) use of non-steroidal anti-inflammatories (NSAID); Z79.84 Long term (current) use of oral hypoglycemic drugs; Z79.4 Long term (current) use of insulin

== ENCOUNTER 2017-02-16 15:15 | Emergency (ER) | payer OTHER ==
[~2017-02-16] VITALS: Ht 160 cm; Wt 84.1 kg
[~2017-02-16 15:15] MED LIST changes: -COLA100C PO; +COLA100C5 PO; +IBUP-1022 PO; -IBUP600T26 PO; -LIDOCAINE 2% INJ 100 MG/5 ML SDV (FOR ANES.) As Ordered ONE; -METF500T PO; +METF500T13 PO; -NS 1,000 ML IV SCH; -PROPOFOL 500 MG/50 ML VIAL As Ordered ONE
[2017-02-16 15:16] VITALS: BP 167/83
[2017-02-16] MEDS ORDERED: LISI-542 PO (15:34)
== END 2017-02-16 16:04 | disposition left against medical advice (07) ==
LOC: M ED 15:15
DX: R73.9 Hyperglycemia, unspecified (principal); Z53.21 Procedure and treatment not carried out due to patient leaving prior to being seen by health care provider

== ENCOUNTER 2017-08-22 09:12 | Emergency (ER) | payer SELFPAY, OTHER ==
[2017-08-22 10:00] LABS: CONTROL LINE UCG INT CTR LINE PRESENT; URINE PREG TEST NEGATIVE (NEGATIVE)
[2017-08-22 10:26] LABS: APPEARANCE, URINE CLOUDY (CLEAR); BACTERIA, URINE AUTO 2+ (NEGATIVE); BILIRUBIN, URINE AUTO NEGATIVE (NEGATIVE); BLOOD, URINE BLOOD NEGATIVE (NEGATIVE); COLOR, URINE YELLOW (YELLOW); GLUCOSE, URINE (UA) AUTO 3+ mg/dL (NEGATIVE); KETONE, URINE AUTO NEGATIVE (NEGATIVE); LEUKOCYTE ESTERASE, URINE AUTO TRACE (NEGATIVE); MUCUS, URINE SMALL (NEGATIVE); NITRITE, URINE AUTO NEGATIVE (NEGATIVE); PROTEIN, URINE AUTO NEGATIVE (NEGATIVE); RBC, URINE AUTO 2 /HPF (0-3); SPECIFIC GRAVITY URINE AUTO 1.038 (1.002-1.035); SQUAMOUS EPITHELIAL CELL UR AU 11 /HPF (0-6); UROBILINOGEN, URINE AUTO 0.2 mg/dL (0.0-2.0); WBC, URINE AUTO 4 /HPF (0-3)
[2017-08-22 10:46] LABS: BASO # 0.1 10^3/uL (0.0-0.2); BASO % 0.6 % (0.0-1.0); EOS # 0.2 10^3/uL (0.0-0.50); HEMATOCRIT 44.4 % (36.0-47.0); HEMOGLOBIN 15.7 g/dl (12.0-15.5); IMMATURE GRANULOCYTE % 0.4 % (0-3.0); LYMPH # 2.3 10^3/uL (1.5-4.5); LYMPH % 23.1 % (24.0-44.0); MEAN CORPUSCULAR HEMOGLOBIN 32.2 pg (27.0-33.0); MEAN CORPUSCULAR HGB CONC 35.4 g/dl (32.0-36.5); MONO # 0.8 10^3/uL (0.0-0.8); MONO % 7.7 % (0.0-5.0); NEUTROPHILS # 6.7 10^3/uL (1.8-7.7); NEUTROPHILS % 66.2 % (36.0-66.0); PLATELET COUNT, AUTOMATED 251 10^3/uL (150-450); RED BLOOD COUNT 4.88 10^6/uL (4.00-5.40); RED CELL DISTRIBUTION WIDTH 11.8 % (11.5-14.5); WHITE BLOOD COUNT 10.1 10^3/uL (4.0-10.0)
[2017-08-22 11:07] LABS: ALBUMIN 3.6 GM/DL (3.2-5.2); ALBUMIN/GLOBULIN RATIO 0.97 (1.00-1.93); ALKALINE PHOSPHATASE 88 U/L (45-117); ALT/SGPT 15 U/L (12-78); ANION GAP 8 MEQ/L (8-16); AST/SGOT 11 U/L (7-37); BILIRUBIN,DIRECT < 0.1 MG/DL (0.0-0.2); BILIRUBIN,TOTAL 0.4 MG/DL (0.2-1.0); BLOOD UREA NITROGEN 14 MG/DL (7-18); CALCIUM LEVEL 8.9 MG/DL (8.5-10.1); CARBON DIOXIDE LEVEL 26 MEQ/L (21-32); CHLORIDE LEVEL 100 MEQ/L (98-107); CREATININE FOR GFR 0.83 MG/DL (0.55-1.30); GLOMERULAR FILTRATION RATE > 60.0 (>58); LIPASE 239 U/L (73-393); POTASSIUM SERUM 4.5 MEQ/L (3.5-5.1); SODIUM LEVEL 134 MEQ/L (136-145); TOTAL PROTEIN 7.3 GM/DL (6.4-8.2)
[2017-08-22 11:17] LABS: LACTIC ACID SEPSIS PROTOCOL 3.2 MMOL/L (0.4-2.0)
[2017-08-22 11:17] LABS: GLUCOSE, FASTING 462 MG/DL (70-100)
[2017-08-22] MEDS ORDERED: ISOVUE-370 76% 100ML VIAL (Q9967) As Ordered (11:17)
[2017-08-22 12:25] LABS: CK-MB VALUE MASS < 1.0 NG/ML (<3.6); CPK CREATINE PHOSPHOKINASE 41 U/L (26-192); MB/CK RELATIVE INDEX 2.43 (< OR =4); PHOSPHORUS LEVEL 3.8 MG/DL (2.5-4.9); TROPONIN I < 0.02 NG/ML (< 0.10)
[2017-08-22 13:00] LABS: OSMOLALITY SERUM 303 MOSM/KG (275-295)
[2017-08-22 13:01] LABS: VENOUS BASE EXCESS 2.4 (-2.0-2.0); VENOUS HCO3 27.5 MEQ/L (23.0-27.0); VENOUS O2 SATURATION 97.3 % (60.0-80.0); VENOUS PARTIAL PRESSURE CO2 44.1 mmHg (38.0-50.0); VENOUS PARTIAL PRESSURE O2 90.5 mmHg (30.0-50.0); VENOUS PH 7.413 UNITS (7.330-7.430); VENOUS STANDARD HCO3 26.6 MEQ/L; VENOUS TOTAL CO2 28.9 MEQ/L (24.0-28.0)
[2017-08-22 13:22] LABS: ESTIMATED AVERAGE GLUCOSE 278 MG/DL (60-110); HEMOGLOBIN A1c 11.3 %
[2017-08-22 13:27] LABS: ACETONE/KETONE 1.37 MG/DL (<2.81)
[2017-08-22] MEDS: NS 1,000 ML IV (13:58)
[2017-08-22] MEDS: CIPROFLOXACIN 400 MG in APPROPRIATE DILUENT 1 EA IV (13:58)
== END 2017-08-22 17:15 | disposition home or self-care (01) ==
LOC: M ED 09:12
DX: N39.0 Urinary tract infection, site not specified (principal); B37.3 Candidiasis of vulva and vagina; E11.65 Type 2 diabetes mellitus with hyperglycemia; G40.909 Epilepsy, unspecified, not intractable, without status epilepticus; K21.9 Gastro-esophageal reflux disease without esophagitis; Z87.440 Personal history of urinary (tract) infections; Z87.442 Personal history of urinary calculi; Z79.899 Other long term (current) drug therapy; Z79.84 Long term (current) use of oral hypoglycemic drugs; F17.210 Nicotine dependence, cigarettes, uncomplicated
CPT/HCPCS: Q9967

== ENCOUNTER → 2018-06-07 | Outpatient (REF) | payer OTHER ==
[~2018-06-07] MED LIST changes: +BACT800T5 PO; +LISI-542 PO; -ZOFR20TA PO; +ZOFR4TAB16 PO
[2018-06-07 15:29] LABS: APPEARANCE, URINE HAZY (CLEAR); BACTERIA, URINE AUTO 1+ (NEGATIVE); BILIRUBIN, URINE AUTO NEGATIVE (NEGATIVE); BLOOD, URINE BLOOD 3+ (NEGATIVE); COLOR, URINE YELLOW (YELLOW); GLUCOSE, URINE (UA) AUTO 3+ mg/dL (NEGATIVE); KETONE, URINE AUTO NEGATIVE (NEGATIVE); LEUKOCYTE ESTERASE, URINE AUTO 1+ (NEGATIVE); MUCUS, URINE SMALL (NEGATIVE); NITRITE, URINE AUTO POSITIVE (NEGATIVE); PROTEIN, URINE AUTO NEGATIVE (NEGATIVE); RBC, URINE AUTO 2 /HPF (0-3); SQUAMOUS EPITHELIAL CELL UR AU 8 /HPF (0-6); UROBILINOGEN, URINE AUTO 0.2 mg/dL (0.0-2.0); WBC, URINE AUTO 33 /HPF (0-3)
== END ==
LOC: M LAB REF 15:09
PROVIDERS: ATTEND Physician Assistant
DX: N39.0 Urinary tract infection, site not specified (principal)

== ENCOUNTER 2018-12-23 01:32 | Inpatient (IN) | payer OTHER, SELFPAY ==
[~2018-12-23] VITALS: Ht 160 cm; Wt 80.5 kg
[~2018-12-23 01:32] MED LIST changes: +OXYC-517 PO; -OXYCO5TA PO; -PERCOCET PO
[2018-12-23] MEDS ORDERED: ONDANSETRON 4MG/2ML VIAL (J2405) As Ordered ONE (02:33)
[2018-12-23] MEDS ORDERED: ONDANSETRON 4MG/2ML VIAL (J2405) IV ONE (02:45)
[2018-12-23] MEDS ORDERED: KETOROLAC 30 MG/ML VIAL (J1885) IV ONE (03:00)
[2018-12-23] MEDS ORDERED: NS 1,000 ML IV ONE (03:00)
[2018-12-23 03:03] LABS: BASO # 0.1 10^3/uL (0.0-0.2); BASO % 0.6 % (0.0-1.0); EOS # 0.2 10^3/uL (0.0-0.50); EOS % 1.9 % (0.0-3.0); HEMATOCRIT 40.6 % (36.0-47.0); HEMOGLOBIN 14.2 g/dl (12.0-15.5); LYMPH # 2.8 10^3/uL (1.5-4.5); LYMPH % 26.9 % (24.0-44.0); MEAN CORPUSCULAR HEMOGLOBIN 32.1 pg (27.0-33.0); MEAN CORPUSCULAR VOLUME 91.9 fl (80.0-96.0); MONO # 0.8 10^3/uL (0.0-0.8); MONO % 7.6 % (0.0-5.0); NEUTROPHILS # 6.4 10^3/uL (1.8-7.7); NEUTROPHILS % 62.6 % (36.0-66.0); PLATELET COUNT, AUTOMATED 248 10^3/uL (150-450); RED BLOOD COUNT 4.42 10^6/uL (4.00-5.40); WHITE BLOOD COUNT 10.3 10^3/uL (4.0-10.0)
[2018-12-23 03:04] LABS: VENOUS BASE EXCESS 2.8 (-2.0-2.0); VENOUS HCO3 26.7 MEQ/L (23.0-27.0); VENOUS O2 SATURATION 98.7 % (60.0-80.0); VENOUS PARTIAL PRESSURE CO2 39.1 mmHg (38.0-50.0); VENOUS PH 7.453 UNITS (7.330-7.430); VENOUS STANDARD HCO3 26.9 MEQ/L; VENOUS TOTAL CO2 27.9 MEQ/L (24.0-28.0)
[2018-12-23 03:25] LABS: OSMOLALITY SERUM 294 MOSM/KG (275-295)
[2018-12-23 03:28] LABS: ACETONE/KETONE 1.44 MG/DL (<2.81); BLOOD UREA NITROGEN 14 MG/DL (7-18); CALCIUM LEVEL 8.9 MG/DL (8.5-10.1); CARBON DIOXIDE LEVEL 28 MEQ/L (21-32); CHLORIDE LEVEL 103 MEQ/L (98-107); CREATININE FOR GFR 0.55 MG/DL (0.55-1.30); GLOMERULAR FILTRATION RATE > 60.0 (>58); GLUCOSE, FASTING 279 MG/DL (70-100); POTASSIUM SERUM 4.1 MEQ/L (3.5-5.1); SODIUM LEVEL 138 MEQ/L (136-145)
[2018-12-23] MEDS ORDERED: METOCLOPRAMIDE INJ 10MG/2ML VIAL (J2765) IV ONE ×2 (04:00→06:15)
[2018-12-23] MEDS ORDERED: HumuLIN R (REGULAR) INSULIN (NovoLIN R) **100U/ML** PER UNIT SC STA (05:14)
[2018-12-23] MEDS ORDERED: MECLIZINE 25 MG TABLET PO ONE (05:15)
--- NOTE | 2018-12-23 05:49 | ECGEPIP ---
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
[2018-12-23] MEDS ORDERED: diphenhydrAMINE INJ 50MG/ML VIAL (J1200) IV ONE (06:15)
--- NOTE | 2018-12-23 07:15 | REPVR ---
EXAM: CT Head Without Contrast EXAM DATE/TIME: 12/23/2018 6:37 AM CLINICAL HISTORY: 43 years old, female; Dizziness; Additional info: Intractable dizziness TECHNIQUE: Imaging protocol: Computed tomography images of the head without contrast. Radiation optimization: All CT scans at this facility use at least one of these dose optimization techniques: automated exposure control; mA and/or kV adjustment per patient size (includes targeted exams where dose is matched to clinical indication); or iterative reconstruction. COMPARISON: No relevant prior studies available. FINDINGS: Brain: The cortical/white matter interfaces are preserved throughout the brain. There is no evidence of intracranial hemorrhage. No parenchymal mass lesions are identified. Ventricles: The ventricular system is normal in size and configuration. Bones/joints: No acute fractures of the skull are identified. Sinuses: The visualized paranasal sinuses are clear. Mastoid air cells: The visualized mastoid air cells are clear. Soft tissues: Unremarkable. IMPRESSION: Normal appearance of the brain. Electronically signed by: Luh Stein On 12/23/2018 07:15:03 AM
--- NOTE | 2018-12-23 10:04 | REP ---
MRI BRAIN WITHOUT CONTRAST: 12/23/2018. Comparison: CT brain today. Clinical history. Persistent dizziness, headache. Rule out cerebellar CVA. Technique: Axial T1, T2, FLAIR, gradient-echo, diffusion-weighted images and ADC mapping sequences with sagittal T1 FLAIR sequence provided. Findings: Lateral ventricles are midline, symmetric and without dilatation or displacement. Basal ganglia symmetric and normal. Toth white junction differentiation well maintained. I see no T2 or FLAIR white matter hyperintense foci in the periventricular, deep central and subcortical white matter tracts. No extra-axial fluid collections. There is no vascular territory infarct, hemorrhage, mass, mass effect or edema in the cerebral hemispheres. There are a few dilated perineural spaces of Virchow in the basal ganglia as a normal finding. Brainstem and seventh/eighth cranial nerve complexes were unremarkable. Cerebellum shows some mild hypointense T1 and hyperintense T2 signal in the left cerebellar peduncle. This area shows hypointense diffusion weighted sequence with bright signal on ADC mapping air and there is no posterior fossa hemorrhage. Basal cisterns are intact. The sphenoid, frontal and maxillary sinuses are clear. Ethmoid sinuses with a few areas of mucosal thickening. Orbits and contents with symmetric globes, optic nerves and extraocular muscles. Corpus callosum, optic chiasm, pituitary were intact. Impression: 1. Small hyperintense focus in the left cerebral peduncle on DWI and ADC mapping sequences suggest a subacute lacunar infarct (1-3 weeks). 2. No mass, mass effect, hemorrhage or edema. 3. No other significant finding. Electronically Signed by Derick Mckeon MD 12/23/2018 09:43 P
--- NOTE | 2018-12-23 10:07 | REP ---
MRA BRAIN WITHOUT CONTRAST: 12/23/2018. CLINICAL HISTORY: Headache, persistent dizziness, rule out cerebellar CVA. COMPARISON: MRI brain, CT brain today. TECHNIQUE: 3-D [id number] gradient echo images with MIP reformatting rotated about the longitudinal axis of the brain for anterior and posterior circulation. FINDINGS: The basilar artery shows a dominant left vertebral artery contribution. There is no basilar stenosis or aneurysm. The right posterior cerebral artery shows normal origin from the basilar tip and normal supply to the posterior fossa. The posterior superior cerebellar arteries are symmetric just below this. The left posterior cerebral artery shows a origin from the posterior margin of the left internal carotid. Its supply to the posterior fossa was symmetric. This is an anatomic normal variation. The right internal carotid from skull base to the carotid siphon shows no significant stenosis or aneurysm. Supraclinoid, A1 and M1 segments are unremarkable. The A2 and M2/M3 segments also without stenosis or aneurysm. The left internal carotid from the skull base to the carotid siphon was unremarkable. There is a origin for that left posterior cerebral artery as described. The supraclinoid, A1 and M1 segments as well as the A2 and M2/M3 segments were all unremarkable. Source images are reviewed. IMPRESSION: 1. Dominant left vertebral artery as anatomic variation with no basilar stenosis or basilar tip aneurysm. Normal origin of the right posterior cerebral artery and origin of the left posterior cerebral artery with symmetric supply to the posterior fossa. No aneurysm. No stenosis. 2. Anterior circulation without stenosis or aneurysm. Electronically Signed by Derick Mckeon MD 12/23/2018 09:44 P
[2018-12-23] MEDS ORDERED: ATORVASTATIN 20 MG TAB PO ONE (11:00)
[2018-12-23] MEDS ORDERED: ASPIRIN 325 MG TAB PO ONE (11:00)
[2018-12-23] MEDS ORDERED: ISOVUE-370 76% 100ML VIAL (Q9967) As Ordered ONE (11:05)
[2018-12-23] MEDS ORDERED: ONDANSETRON 4MG/2ML VIAL (J2405) IV PRN (11:15)
[2018-12-23] MEDS ORDERED: DEXTROSE 50% 50 ML SYRINGE IV PRN (11:30)
[2018-12-23] MEDS ORDERED: GLUCOSE 4 GM CHEW TABLET PO PRN (11:30)
[2018-12-23] MEDS ORDERED: GLUCAGON FOR INJ 1 MG VIAL (J1610) SC PRN (11:30)
--- NOTE | 2018-12-23 11:47 | HPEPDOC ---
General Date of Admission 12/23/18 Date of Service: Dec 23, 2018 Attending Physician: LOC PICKERING DO Chief Complaint The patient is a 43-year-old female admitted with a reason for visit of Weakne ss/Diabetes. Source: Patient, Family Exam Limitations: No limitations Timing/Duration: 4-6 hours Severity: Mild History of Present Illness Patient is 43 years old female with past medical history of uncontrolled type 2 diabetes, obesity, smoker presented to the hospital with severe dizziness, nausea. Patient stated that yesterday evening when she was sitting she developed severe dizziness with feeling that the room was spinning around also stated with nausea. Patient states that she developed 2 episodes of vomiting. She did not notice any focal weakness, diplopia. Also patient had severe frontal headache 7 out of 10, constant. Of note, patient has uncontrolled diabetes type 2 due to lack of medical insurance, she uses insulin intermittently. Yesterday she checked her glucose level and it was above 200. In emergency room patient did have persistent severe nausea. Brain MRI was done and showed Small hyper intense focus in the left cerebral peduncle suggest a subacute lacunar infarct 1-2 weeks duration. No mass, mass effect, hemorrhage or edema. Patient denied fever, chills, shortness of breath, palpitations, diarrhea Home Medications Scheduled PRN Insulin Human Lispro (Novolog) 100 U/Ml Inj, 0 SC ACHS PRN for BLOOD SUGAR, (Reported) PT USES NEEDED Allergies Coded Allergies: No Known Allergies (Verified , 08/17/03) Past Medical History Medical History Diabetes type 2, obesity, active smoker Family History Both grandparents had a stroke at age 50s Social History * Smoker: current smoker, greater than 1 pack/day Alcohol: Denies Drugs: denies Psychosocial History: No pertinent psych hx A-FIB/CHADSVASC A-FIB History Current/History of A-Fib/PAF?: No Current PO Anticoag Therapy: No Review of Systems Constitutional: Reports: Malaise, Weakness; Denies: Fever Eyes: Denies: Pain, Vision change ENT: Reports: Head Aches; Denies: Sinus Congestion, Post Nasal Drip Skin: Denies: Rash, Lesions Pulmonary: Denies: Dyspnea, Cough Cardiovascular: Denies: Chest Pain, Palpitations, Orthopnea Gastrointestinal: Reports: Nausea, Vomiting Genitourinary: Denies: Dysuria Hematologic: Denies: Bruising, Bleeding Excessively Endocrine: Reports: Polyuria; Denies: Polydipsia, Polyphagia Musculoskeletal: Denies: Muscle Pain Neurological: Denies: Weakness, Numbness, Change in speech, Seizures Psych: Reports: Mood Normal Physical Examination General Exam: Positive: Alert, Cooperative, No Acute Distress Eye Exam: Positive: PERRLA, Conjunctiva & lids normal, EOMI ENT Exam: Positive: Atraumatic, Tongue Midline Neck Exam: Positive: Supple; Negative: JVD Chest Exam: Positive: Clear to auscultation, Normal air movement Heart Exam: Positive: Rate Normal, Regular Rhythm; Negative: Tachycardic, Bradycardic Abdomen Exam: Positive: Normal bowel sounds Extremity Exam: Negative: Clubbing, Cyanosis, Edema Skin Exam: Negative: Nl turgor and temperature, Rash Neuro Exam: Positive: Strength at 5/5 X4 ext, Normal Tone, Cranial Nerves 3-12 NL, Reflexes 2+ Psych Exam: Positive: Mental status NL Vital Signs Vital Signs Date Time Temp Pulse Resp B/P (MAP) Pulse Ox O2 Delivery O2 Flow Rate FiO2 12/23/18 10:31 82 98 12/23/18 10:30 122/57 (78) 12/23/18 07:01 18 Room Air 12/23/18 01:32 96.8 Laboratory Data Labs 24H Laboratory Tests 2 12/23/18 01:38: Bedside Glucose (Misc Panel) 293H 12/23/18 02:30: Immature Granulocyte % (Auto) 0.4, White Blood Count 10.3H, Red Blood Count 4.42, Hemoglobin 14.2, Hematocrit 40.6, Mean Corpuscular Volume 91.9, Mean Corpuscular Hemoglobin 32.1, Mean Corpuscular Hemoglobin Concent 35.0, Red Cell Distribution Width 12.0, Platelet Count 248, Neutrophils (%) (Auto) 62.6, Lymphocytes (%) (Auto) 26.9, Monocytes (%) (Auto) 7.6H, Eosinophils (%) (Auto) 1.9, Basophils (%) (Auto) 0.6, Neutrophils # (Auto) 6.4, Lymphocytes # (Auto) 2.8, Monocytes # (Auto) 0.8, Eosinophils # (Auto) 0.2, Basophils # (Auto) 0.1, Nucleated Red Blood Cells % (auto) 0.0, Blood Gas Bicarbonate Standard 26.9, Venous Blood pH 7.453H, Venous Blood Partial Pressure CO2 39.1, Venous Blood Partial Pressure O2 136.0H, Venous Blood Total Carbon Dioxide 27.9, Venous Blood HCO3 26.7, Venous Blood Oxygen Saturation 98.7H, Venous Blood Base Excess 2.8H, Anion Gap 7L, Glomerular Filtration Rate > 60.0, Osmolality 294, Blood Urea Nitrogen 14, Creatinine 0.55, Sodium Level 138, Potassium Level 4.1, Chloride Level 103, Carbon Dioxide Level 28, Calcium Level 8.9, B-Hydroxybutyrate 1.44 12/23/18 05:24: Bedside Glucose (Misc Panel) 276H 12/23/18 07:02: Bedside Glucose (Misc Panel) 279H 12/23/18 08:08: Bedside Glucose (Misc Panel) 279H CBC/BMP Laboratory Tests 12/23/18 02:30 Red Blood Count 4.42, Mean Corpuscular Volume 91.9, Mean Corpuscular Hemoglobin 32.1, Mean Corpuscular Hemoglobin Concent 35.0, Red Cell Distribution Width 12.0, Neutrophils (%) (Auto) 62.6, Lymphocytes (%) (Auto) 26.9, Monocytes (%) (Auto) 7.6 H, Eosinophils (%) (Auto) 1.9, Basophils (%) (Auto) 0.6, Neutrophils # (Auto) 6.4, Lymphocytes # (Auto) 2.8, Monocytes # (Auto) 0.8, Eosinophils # (Auto) 0.2, Basophils # (Auto) 0.1, Calcium Level 8.9 Assessment/Plan Patient is 43 years old female with past medical history of uncontrolled type 2 diabetes, obesity, smoker presented to the hospital with severe dizziness, nausea. Patient stated that yesterday evening when she was sitting she developed severe dizziness with feeling that the room was spinning around also associated with nausea. MRI of the brain showed small hyperintense focus in the left c erebral peduncle consistent with subacute lacuna infarct one to 3 weeks duration. Problems (1) CVA (cerebral vascular accident) Status: Acute Problem Text: Differential diagnosis includes acute CVA versus vestibular neur itis echocardiogram CTA of the neck Full dose of aspirin daily Statin Telemetry Neurologist consult Isai IV Speech evaluation Nothing by mouth for now Meclizine by mouth PTOT (2) Uncontrolled diabetes mellitus type 2 without complications Status: Acute Problem Text: Insulin sliding scale HbA1c (3) Dizziness Problem Text: There is concern for vestibular neuritis Meclizine when necessary PT/OT Plan / VTE VTE Prophylaxis Ordered?: Yes Plan Therapy: PT, Speech LOC PICKERING DO Dec 23, 2018 11:47
[2018-12-23 12:20] LABS: INR 1.02; PROTHROMBIN TIME 13.1 SECONDS (11.8-14.0)
[2018-12-23 12:21] LABS: PARTIAL THROMBOPLASTIN TIME 26.7 SECONDS (25.0-38.4)
[2018-12-23] MEDS: NS 1,000 ML IV SCH ×2 (12:23→21:25)
[2018-12-23 12:32] LABS: HEMOGLOBIN A1c 12.4 %
[2018-12-23 12:43] LABS: CK-MB VALUE MASS < 1.0 NG/ML (<3.6); CPK CREATINE PHOSPHOKINASE 72 U/L (26-192); MB/CK RELATIVE INDEX 1.39 (< OR =4); TROPONIN I < 0.02 NG/ML (< 0.10)
[2018-12-23] MEDS: HumaLOG INSULIN (NovoLOG) PER UNIT SC SCH ×2 (12:47→18:00)
--- NOTE | 2018-12-23 13:07 | REP ---
CT ANGIOGRAM NECK: 12/23/2018. Clinical history: Cerebellar lacunar infarct. Technique: Bolus of 75 mL Isovue 370 scanning through the neck with our CT angiogram protocol and with 3-D surface renderings rotated about the longitudinal axis of the neck as well as curve reformatting of each internal carotid. Findings: Nonvascular: The parotid, submandibular glands, neck and mandibular musculature unremarkable and symmetric. Bony cervical and upper thoracic vertebral bodies posterior elements intact. C1-2 relationship normal. Skull base without acute finding. Some minor ethmoid sinus mucosal thickening. Mastoids intact. The patient is edentulous. No adenopathy of pathologic size. The nasopharynx to subglottic tracheal airway intact. Vascular findings: Aortic arch has normal three vessels arising without stenosis. The right common carotid shows some atherosclerotic plaque at the bulb and into the proximal ICA without significant stenosis. The right internal carotid to the skull base was intact. There is some minor plaque in the carotid siphon region. The left internal carotid shows normal origin from the arch and no stenosis. Minimal plaque at the bulb and proximal ICA. The left internal carotid to the skull base without stenosis or aneurysm. There is a small amount of atherosclerotic plaque in the carotid siphon. No evidence of carotid dissection. Slightly dominant left vertebral artery. Please see the MRA brain for posterior fossa. Impression: 1. Some atherosclerotic plaque at the carotid bulb, right greater than left, but neither internal carotid shows significant stenosis from the bifurcation to the carotid siphon. 2. Both internal carotid arteries at the siphon do show some mild atherosclerotic plaque. 3. Dominant left vertebral artery. Please see posterior fossa findings in the MRA brain. Electronically Signed by Derick Mckeon MD 12/23/2018 09:53 P
--- NOTE | 2018-12-23 13:08 | REP ---
AP PORTABLE CHEST: 12/23/2018. Comparison: 02/20/2016. Clinical history: Left cerebellar CVA. Findings: Lung barbosa are well inflated. CP angles sharply defined without effusion, lateral pleural thickening or apical scarring. Heart size exaggerated by portable technique. No gross cardiomegaly, vascular redistribution or edema. The aorta and airway intact. Bones unremarkable. Impression: 1. Negative AP portable chest. Heart size exaggerated by AP portable technique. No edema. Electronically Signed by Derick Mckeon MD 12/23/2018 09:53 P
[2018-12-23 20:42] VITALS: BP 156/85
[2018-12-23] MEDS ORDERED: LEVEMIR (INSULIN DETEMIR) 1 UNITS/0.01ML SC SCH ×2 (21:00)
[2018-12-23] MEDS: DOCUSATE SODIUM 100 MG CAP PO SCH (21:00)
[2018-12-23] MEDS ORDERED: ATORVASTATIN 20 MG TAB PO SCH (21:00)
[2018-12-23] MEDS: HEPARIN SOD (PORCINE) 5000 UNITS/ML VIAL SC SCH (21:25)
[2018-12-23] MEDS: ACETAMINOPHEN TAB 650MG DOSE (2X325MG) PO PRN (21:26)
[2018-12-24] MEDS: NS 1,000 ML IV SCH (03:35)
[2018-12-24 06:00] VITALS: BP 137/77
[2018-12-24] MEDS: HumaLOG INSULIN (NovoLOG) PER UNIT SC SCH ×5 (06:43→21:00)
[2018-12-24 06:55] LABS: ALBUMIN 2.8 GM/DL (3.2-5.2); ALT/SGPT 15 U/L (12-78); BILIRUBIN,TOTAL 0.2 MG/DL (0.2-1.0); BLOOD UREA NITROGEN 13 MG/DL (7-18); CARBON DIOXIDE LEVEL 27 MEQ/L (21-32); CHLORIDE LEVEL 109 MEQ/L (98-107); CHOLESTEROL LEVEL 156 MG/DL (<200); CREATININE FOR GFR 0.42 MG/DL (0.55-1.30); GLOMERULAR FILTRATION RATE > 60.0 (>58); GLUCOSE, FASTING 264 MG/DL (70-100); HDL CHOLESTEROL 30 MG/DL (>40); LDL CHOLESTEROL 71 MG/DL (<100); MAGNESIUM LEVEL 1.8 MG/DL (1.8-2.4); NON-HDL-C 126 MG/DL; POTASSIUM SERUM 3.4 MEQ/L (3.5-5.1); SODIUM LEVEL 143 MEQ/L (136-145); TOTAL PROTEIN 5.3 GM/DL (6.4-8.2); TRIGLYCERIDES LEVEL 276 MG/DL (<150)
[2018-12-24] MEDS: ASPIRIN 81 MG CHEW TABLET PO SCH (08:55)
[2018-12-24] MEDS: DOCUSATE SODIUM 100 MG CAP PO SCH ×2 (08:56→21:00)
[2018-12-24] MEDS: HEPARIN SOD (PORCINE) 5000 UNITS/ML VIAL SC SCH ×2 (08:56→21:31)
[2018-12-24] MEDS: MECLIZINE 25 MG TABLET PO PRN ×2 (08:56→18:58)
--- NOTE | 2018-12-24 10:30 | IPNPDOC ---
Text Note Date of Service The patient was seen on 12/24/18. NOTE Subjective: No any acute event overnight. Patient complains of mild dizziness which is significantly improved from yesterday. No any vomiting, bed swallow test was negative for signs of aspiration and cough. Objective General: Obese female, NAD HEENT: No JVD, PERRLA, EOMI Lungs clear to auscultation bilaterally CV S1-S2, regular Abdomen: Nontender, nondistended Extremities: No swelling, no cyanosis Neuro: Cranial nerves from 2 through 12 intact, no nuchal rigidity, follows command, muscle strength 5/5 all 4 extremities Patient is 43 years old female with past medical history of uncontrolled type 2 diabetes with recent HbA1c of 12, obesity, smoker presented to the hospital with severe dizziness, nausea. Patient stated that yesterday evening when she was sit ting she developed severe dizziness with feeling that the room was spinning around also associated with nausea. MRI of the brain showed small hyperintense focus in the left cerebral peduncle consistent with subacute lacuna infarct one to 3 weeks duration. (1) CVA (cerebral vascular accident) Status: Acute vs old Problem Text: Differential diagnosis includes acute CVA versus old CVA versus vestibular neuritis echocardiogram pending CTA of the neck : Both internal carotid arteries at the siphon do show some mild arthrosclerotic plaque Full dose of aspirin daily Statin Echo pending Telemetry showed NSR Neurologist consult pending Zofran IV Speech evaluation Meclizine by mouth Diet was upgraded to diabetes. 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 Clinical history: Cerebellar lacunar infarct. Technique: Bolus of 75 mL Isovue 370 scanning through the neck with our CT angiogram protocol and with 3-D surface renderings rotated about the longitudinal axis of the neck as well as curve reformatting of each internal carotid. Findings: Nonvascular: The parotid, submandibular glands, neck and mandibular musculature unremarkable and symmetric. Bony cervical and upper thoracic vertebral bodies posterior elements intact. C1-2 relationship normal. Skull base without acute finding. Some minor ethmoid sinus mucosal thickening. Mastoids intact. The patient is edentulous. No adenopathy of pathologic size. The nasopharynx to subglottic tracheal airway intact. Vascular findings: Aortic arch has normal three vessels arising without stenosis. The right common carotid shows some atherosclerotic plaque at the bulb and into the proximal ICA without significant stenosis. The right internal carotid to the skull base was intact. There is some minor plaque in the carotid siphon region. The left internal carotid shows normal origin from the arch and no stenosis. Minimal plaque at the bulb and proximal ICA. The left internal carotid to the skull base without stenosis or aneurysm. There is a small amount of atherosclerotic plaque in the carotid siphon. No evidence of carotid dissection. Slightly dominant left vertebral artery. Please see the MRA brain for posterior fossa. Impression: 1. Some atherosclerotic plaque at the carotid bulb, right greater than left, but neither internal carotid shows significant stenosis from the bifurcation to the carotid siphon. 2. Both internal carotid arteries at the siphon do show some mild atherosclerotic plaque. 3. Dominant left vertebral artery. Please see posterior fossa findings in the MRA brain. MRI BRAIN WITHOUT CONTRAST: 12/23/2018. Comparison: CT brain today. Clinical history. Persistent dizziness, headache. Rule out cerebellar CVA. Technique: Axial T1, T2, FLAIR, gradient-echo, diffusion-weighted images and ADC mapping sequences with sagittal T1 FLAIR sequence provided. Findings: Lateral ventricles are midline, symmetric and without dilatation or displacement. Basal ganglia symmetric and normal. Toth white junction differentiation well maintained. I see no T2 or FLAIR white matter hyperintense foci in the periventricular, deep central and subcortical white matter tracts. No extra-axial fluid collections. There is no vascular territory infarct, hemorrhage, mass, mass effect or edema in the cerebral hemispheres. There are a few dilated perineural spaces of Virchow in the basal ganglia as a normal finding. Brainstem and seventh/eighth cranial nerve complexes were u nremarkable. Cerebellum shows some mild hypointense T1 and hyperintense T2 signal in the left cerebellar peduncle. This area shows hypointense diffusion weighted sequence with bright signal on ADC mapping air and there is no posterior fossa hemorrhage. Basal cisterns are intact. The sphenoid, frontal and maxillary sinuses are clear. Ethmoid sinuses with a few areas of mucosal thickening. Orbits and contents with symmetric globes, optic nerves and extraocular muscles. Corpus callosum, optic chiasm, pituitary were intact. Impression: 1. Small hyperintense focus in the left cerebral peduncle on DWI and ADC mapping sequences suggest a subacute lacunar infarct (1-3 weeks). 2. No mass, mass effect, hemorrhage or edema. 3. No other significant finding. VS,Fishbone, I+O VS, Fishbone, I+O Laboratory Tests 12/24/18 05:54 Calcium Level 8.0 L, Aspartate Amino Transf (AST/SGOT) 8, Alanine Aminotransferase (ALT/SGPT) 15, Alkaline Phosphatase 69, Total Bilirubin 0.2, Triglycerides Level 276 H, LDL Cholesterol 71, Total Protein 5.3 L, Albumin 2.8 L Vital Signs Date Time Temp Pulse Resp B/P (MAP) Pulse Ox O2 Delivery O2 Flow Rate FiO2 12/24/18 06:00 97.6 87 18 137/77 (97) 97 12/23/18 07:01 Room Air I&O- Last 24 Hours up to 6 AM 12/24/18 05:59 Intake Total 360 ml Balance 360 ml LOC PICKERING DO Dec 24, 2018 10:30
[2018-12-24] MEDS: TOPIRAMATE (TopAMAX) 25 MG TAB PO SCH ×2 (10:42→21:31)
[2018-12-24 14:00] VITALS: BP_SYST 108; BP_SYST 144; BP_DIAS 75; BP_DIAS 81
[2018-12-24] MEDS: ATORVASTATIN 20 MG TAB PO SCH (21:31)
[2018-12-24] MEDS: LEVEMIR (INSULIN DETEMIR) 1 UNITS/0.01ML SC SCH (21:32)
[2018-12-24 22:00] VITALS: BP 151/87
--- NOTE | 2018-12-24 23:08 | CR ---
DATE OF CONSULTATION: 12/24/2018 REFERRING PHYSICIAN: Konrad Wang MD REASON FOR CONSULTATION: Dizziness. HISTORY OF PRESENT ILLNESS: Karl Garcia is a 43-year-old woman with history of uncontrolled type 2 diabetes, obesity smoking who presented to [facility] with sudden onset of severe dizziness and nausea. The patient states that she does not have a primary care physician. She does not take insulin regularly. She might take insulin twice a week. She states that she stopped going to doctors. She states that without preceding injury or illness, she developed dizziness around dinner time on night. She suddenly started feeling spinning sensation, dizziness and lightheadedness. She felt aching in her ears. She denies any sore throat, cough, sinus or nasal congestion. She denies any preceding injuries or roller coaster ride. She denies any trouble with hearing or ringing in the years. She states that she continuously feels dizzy. Even opening her eyes and looking around increases her dizziness. At her baseline, she has headaches three or four times a month, which are frontal, 7/10 in intensity, pressure or throbbing in character. She used to have seizures in childhood, but she grew out of them. She denies ever having stroke-like symptoms in the past. She denies dysphagia, dysarthria, diplopia or urinary incontinence, falls, loss of consciousness, neck or back pain. DIAGNOSTIC STUDIES: Her MRI scan of brain was reviewed and showed an old left cerebellar peduncle lacunar ischemic stroke. This region is hyperintense on DWI, EDC, flair T2 sequences of MRI scan of brain consistent with T2 shine through from old lesion. There is no acute stroke. MRA brain is normal. CTA of neck showed mild atherosclerosis of internal carotid arteries. Total cholesterol was 156 with HDL 30 and LDL 71, WBCs 10.3 and poorly controlled diabetes. HOME MEDICATIONS: Insulin NovoLog on sliding scale ALLERGIES: None. SOCIAL HISTORY: She smokes less than one pack per day. She denies alcohol or illicit drugs. 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 She has three children. FAMILY HISTORY: Grandparents had stroke in their 50s. REVIEW OF SYSTEMS: All systems were reviewed and were found to be noncontributory, except as mentioned history of present illness. PHYSICAL EXAMINATION: Temperature 97.6, pulse 87, respiratory 18, blood pressure 137/77, 97% saturation on room air. Heart: Regular rate rhythm. Lungs: Clear to auscultation. Abdomen: Soft, nontender, nondistended. No pedal edema. No musculoskeletal abnormalities. No rash. No signs of the meningeal irritation. The patient is awake, alert, oriented to place, person and time. Normal speech, comprehension and repetition. Extraocular muscles are intact. No facial weakness. Tongue and uvula midline. 5/5 strength in all four extremities. Deep tendon flexes 2+ throughout. Normal sensation. Her gait is unsteady. There is no dysmetria. There is no tremor. Visual barbosa are full to confrontation. Recent and distant memory is intact. ASSESSMENT: 1. Suspected vestibular neuronitis. 2. 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 3. Minimal carotid artery atherosclerosis. 4. Uncontrolled diabetes and medical noncompliance. PLAN: 1. Topiramate 25 mg by mouth twice a day 2. Aspirin 81 mg by mouth daily. 3. meclizine 25 mg by mouth three times a day as needed 4. Reglan 10 mg by mouth three times a day as needed/ 5. Echocardiogram and continue telemetry monitoring. 6. Blood tests to rule out coagulopathy and vasculopathy. 7. Emphasized compliance with her treatment of diabetes and general health. She should follow up with her primary care physician regularly. CRISTINA
[2018-12-25 06:00] VITALS: BP 164/74
[2018-12-25 06:58] LABS: HEMOGLOBIN 13.3 g/dl (12.0-15.5); MEAN CORPUSCULAR HEMOGLOBIN 33.2 pg (27.0-33.0); MEAN CORPUSCULAR VOLUME 94.8 fl (80.0-96.0); PLATELET COUNT, AUTOMATED 246 10^3/uL (150-450); RED BLOOD COUNT 4.01 10^6/uL (4.00-5.40); WHITE BLOOD COUNT 9.9 10^3/uL (4.0-10.0)
[2018-12-25 07:32] LABS: BLOOD UREA NITROGEN 14 MG/DL (7-18); CALCIUM LEVEL 8.4 MG/DL (8.5-10.1); CARBON DIOXIDE LEVEL 25 MEQ/L (21-32); CHLORIDE LEVEL 109 MEQ/L (98-107); CREATININE FOR GFR 0.45 MG/DL (0.55-1.30); GLOMERULAR FILTRATION RATE > 60.0 (>58); GLUCOSE, FASTING 203 MG/DL (70-100); MAGNESIUM LEVEL 1.8 MG/DL (1.8-2.4); POTASSIUM SERUM 3.4 MEQ/L (3.5-5.1); SODIUM LEVEL 142 MEQ/L (136-145)
[2018-12-25] MEDS: HEPARIN SOD (PORCINE) 5000 UNITS/ML VIAL SC SCH ×2 (08:38→20:56)
[2018-12-25] MEDS: DOCUSATE SODIUM 100 MG CAP PO SCH ×3 (08:38→20:55)
[2018-12-25] MEDS: ASPIRIN 81 MG CHEW TABLET PO SCH (08:38)
[2018-12-25] MEDS: TOPIRAMATE (TopAMAX) 25 MG TAB PO SCH ×2 (08:38→20:55)
[2018-12-25] MEDS: HumaLOG INSULIN (NovoLOG) PER UNIT SC SCH ×4 (08:39→20:56)
[2018-12-25 14:00] VITALS: BP 158/84
[2018-12-25] MEDS: MECLIZINE 25 MG TABLET PO PRN (17:26)
[2018-12-25] MEDS: ACETAMINOPHEN TAB 650MG DOSE (2X325MG) PO PRN (17:27)
--- NOTE | 2018-12-25 20:11 | IPNPDOC ---
Text Note Date of Service The patient was seen on 12/25/18. NOTE Subjective: No any acute event overnight. Patient complains of severe dizziness, unsteadiness, tinnitus. Patient almost lost balance when she walked to the bathroom Objective General: Obese female, NAD HEENT: No JVD, PERRLA, EOMI Lungs clear to auscultation bilaterally CV S1-S2, regular Abdomen: Nontender, nondistended Extremities: No swelling, no cyanosis Neuro: Cranial nerves from 2 through 12 intact, no nuchal rigidity, follows command, muscle strength 5/5 all 4 extremities Patient is 43 years old female with past medical history of uncontrolled type 2 diabetes with recent HbA1c of 12, obesity, smoker presented to the hospital with severe dizziness, nausea. Patient stated that yesterday evening when she was sitting she developed severe dizziness with feeling that the room was spinning around also associated with nausea. MRI of the brain showed small hyperintense focus in the left cerebral peduncle consistent with subacute lacuna infarct one to 3 weeks duration. 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 Pt will vestibular rehab, audiology Steroid trial for Meniere diseases. Hardin-Hallpike test negative for BPPV meclizine 25 mg by mouth three times a day as needed Reglan 10 mg by mouth three times a day as needed Topiramate 25 mg by mouth twice a day TSH, ESR, LAN,UA, VDRL, FTA-ABS, CRP PT/OT VS,Fishbone, I+O VS, Fishbone, I+O Laboratory Tests 12/25/18 05:57 Red Blood Count 4.01, Mean Corpuscular Volume 94.8, Mean Corpuscular Hemoglobin 33.2 H, Mean Corpuscular Hemoglobin Concent 35.0, Red Cell Distribution Width 12.2, Calcium Level 8.4 L Vital Signs Date Time Temp Pulse Resp B/P (MAP) Pulse Ox O2 Delivery O2 Flow Rate FiO2 12/25/18 14:00 96.7 83 19 158/84 (108) 98 12/23/18 07:01 Room Air I&O- Last 24 Hours up to 6 AM 12/25/18 06:00 Intake Total 2455 ml Output Total 0 ml Balance 2455 ml LOC PICKERING DO Dec 25, 2018 20:11
[2018-12-25] MEDS: ATORVASTATIN 20 MG TAB PO SCH (20:55)
[2018-12-25] MEDS: LEVEMIR (INSULIN DETEMIR) 1 UNITS/0.01ML SC SCH (20:56)
[2018-12-25 21:11] LABS: C REACTIVE PROTEIN QUANTITATIV 0.42 MG/DL (0.00-0.30); THYROID STIMULATING HORMONE 0.701 uIU/ML (0.358-3.740)
[2018-12-25 22:00] VITALS: BP 140/68
[2018-12-25 22:15] LABS: APPEARANCE, URINE CLOUDY (CLEAR); BACTERIA, URINE AUTO 2+ (NEGATIVE); BILIRUBIN, URINE AUTO NEGATIVE (NEGATIVE); BLOOD, URINE BLOOD 1+ (NEGATIVE); COLOR, URINE RED (YELLOW); GLUCOSE, URINE (UA) AUTO 3+ mg/dL (NEGATIVE); KETONE, URINE AUTO NEGATIVE (NEGATIVE); LEUKOCYTE ESTERASE, URINE AUTO TRACE (NEGATIVE); NITRITE, URINE AUTO NEGATIVE (NEGATIVE); PROTEIN, URINE AUTO NEGATIVE (NEGATIVE); RBC, URINE AUTO 5 /HPF (0-3); SPECIFIC GRAVITY URINE AUTO 1.024 (1.002-1.035); SQUAMOUS EPITHELIAL CELL UR AU 3 /HPF (0-6); WBC, URINE AUTO 61 /HPF (0-3)
--- NOTE | 2018-12-25 23:59 | ECHO ---
DATE OF PROCEDURE: 12/25/2018 REFERRING PHYSICIAN: Dr. Konrad Wang INDICATION: Acute stroke. HEIGHT: 160 cm WEIGHT: 82 kg 2D MEASUREMENTS: LVOT: 2.0 cm Aortic root: 2.5 cm Proximal ascending aorta: 3.0 cm Ventricular septum: 1.22 cm Posterior wall: 1.23 cm Left ventricle diastole: 4.1 cm Left atrium: 3.6 cm Left atrial volume index: 23 Inferior vena cava: 2.3 cm with more than 50% respiratory variation. DOPPLER MEASUREMENTS: Aortic valve velocity: 139 cm/s LVOT velocity: 81.2 cm/s Mild tricuspid regurgitation. Mitral E velocity: 105 cm/s Mitral A velocity: 104 cm/s Mitral deceleration time: 204 ms Very mild tricuspid regurgitation. Pulmonary artery systolic pressure: 24 mmHg MITRAL ANNULAR TISSUE DOPPLER: E prime septal: 8.3 cm/s E prime lateral: 7.6 cm/s DESCRIPTION: Rhythm was sinus. Image quality was fair. This was a 2D, M-mode, color flow Doppler and pulse wave Doppler examination and included mitral annular tissue Doppler. CONCLUSIONS: 1. Very mild concentric left ventricle hypertrophy. Normal regional left ventricular (LV) wall motion and wall thickening. Normal LV systolic function. Left ventricular ejection fraction (LVEF) 65% by visual estimate. 2. Tiny pericardial effusion, which was nonspecific. 3. Otherwise normal appearing echocardiogram Doppler findings.
[2018-12-26 06:00] VITALS: BP 120/69
[2018-12-26 06:52] LABS: HEMATOCRIT 37.6 % (36.0-47.0); HEMOGLOBIN 12.9 g/dl (12.0-15.5); MEAN CORPUSCULAR HEMOGLOBIN 31.6 pg (27.0-33.0); MEAN CORPUSCULAR HGB CONC 34.3 g/dl (32.0-36.5); MEAN CORPUSCULAR VOLUME 92.2 fl (80.0-96.0); PLATELET COUNT, AUTOMATED 261 10^3/uL (150-450); RED BLOOD COUNT 4.08 10^6/uL (4.00-5.40); WHITE BLOOD COUNT 9.4 10^3/uL (4.0-10.0)
[2018-12-26 07:18] LABS: BLOOD UREA NITROGEN 13 MG/DL (7-18); CALCIUM LEVEL 8.7 MG/DL (8.5-10.1); CARBON DIOXIDE LEVEL 24 MEQ/L (21-32); CHLORIDE LEVEL 109 MEQ/L (98-107); CREATININE FOR GFR 0.53 MG/DL (0.55-1.30); GLOMERULAR FILTRATION RATE > 60.0 (>58); GLUCOSE, FASTING 241 MG/DL (70-100); MAGNESIUM LEVEL 1.7 MG/DL (1.8-2.4); POTASSIUM SERUM 3.9 MEQ/L (3.5-5.1); SODIUM LEVEL 138 MEQ/L (136-145)
[2018-12-26] MEDS: HumaLOG INSULIN (NovoLOG) PER UNIT SC SCH ×4 (08:03→20:59)
[2018-12-26] MEDS: TOPIRAMATE (TopAMAX) 25 MG TAB PO SCH ×2 (08:04→20:57)
[2018-12-26] MEDS: ASPIRIN 81 MG CHEW TABLET PO SCH (08:04)
[2018-12-26] MEDS: HEPARIN SOD (PORCINE) 5000 UNITS/ML VIAL SC SCH ×2 (08:04→20:58)
[2018-12-26] MEDS: DOCUSATE SODIUM 100 MG CAP PO SCH ×2 (08:04→20:58)
[2018-12-26] MEDS: predniSONE 20 MG TAB PO SCH (08:04)
[2018-12-26 14:00] VITALS: BP 152/85
--- NOTE | 2018-12-26 14:28 | IPNPDOC ---
Text Note Date of Service The patient was seen on 12/26/18. NOTE NOTE Subjective: No any acute event overnight. Patient complains of dizziness, unst eadiness, tinnitus. Patient stated that her dizziness improved. Objective General: Obese female, NAD HEENT: No JVD, PERRLA, EOMI Lungs clear to auscultation bilaterally CV S1-S2, regular Abdomen: Nontender, nondistended Extremities: No swelling, no cyanosis Neuro: Cranial nerves from 2 through 12 intact, no nuchal rigidity, follows command, muscle strength 5/5 all 4 extremities Echo DATE OF PROCEDURE: 12/25/2018 REFERRING PHYSICIAN: Dr. Konrad Wang INDICATION: Acute stroke. HEIGHT: 160 cm WEIGHT: 82 kg 2D MEASUREMENTS: LVOT: 2.0 cm Aortic root: 2.5 cm Proximal ascending aorta: 3.0 cm Ventricular septum: 1.22 cm Posterior wall: 1.23 cm Left ventricle diastole: 4.1 cm Left atrium: 3.6 cm Left atrial volume index: 23 Inferior vena cava: 2.3 cm with more than 50% respiratory variation. DOPPLER MEASUREMENTS: Aortic valve velocity: 139 cm/s LVOT velocity: 81.2 cm/s Mild tricuspid regurgitation. Mitral E velocity: 105 cm/s Mitral A velocity: 104 cm/s Mitral deceleration time: 204 ms Very mild tricuspid regurgitation. Pulmonary artery systolic pressure: 24 mmHg MITRAL ANNULAR TISSUE DOPPLER: E prime septal: 8.3 cm/s E prime lateral: 7.6 cm/s DESCRIPTION: Rhythm was sinus. Image quality was fair. This was a 2D, M-mode, color flow Doppler and pulse wave Doppler examination and included mitral annular tissue Doppler. CONCLUSIONS: 1. Very mild concentric left ventricle hypertrophy. Normal regional left ventricular (LV) wall motion and wall thickening. Normal LV systolic function. Left ventricular ejection fraction (LVEF) 65% by visual estimate. 2. Tiny pericardial effusion, which was nonspecific. 3. Otherwise normal appearing echocardiogram Doppler findings. Patient is 43 years old female with past medical history of uncontrolled type 2 diabetes with recent HbA1c of 12, obesity, smoker presented to the hospital with severe dizziness, nausea. Patient stated that yesterday evening when she was sitting she developed severe dizziness with feeling that the room was spinning around also associated with nausea. MRI of the brain showed small hyperintense focus in the left cerebral peduncle consistent with subacute lacuna infarct one to [address] Vo suspect that patient dizziness could be attributed to vestibular neuritis. Physical therapy consulted patient and recommended vestibular rehab after discharge. There is concern also for Mnire diseases. Trial of by mouth steroids initiated. 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 Aspirin 81 mg Statin Echo unremarkable Telemetry showed NSR Zofran IV Speech therapist evaluated patient and did not find any oropharyngeal dysfunction Meclizine by mouth PTOT (2) Uncontrolled diabetes mellitus type 2 without complications Status: Acute Problem Text: Insulin sliding scale Levemir daily at bedtime. Detemir dose increased to 13 U Diabetes education runner worker on board to help with insurance (3) Dizziness Problem Text: There is concern for vestibular neuritis vs Meniere diseases. Pt will need vestibular rehab, audiology test study Steroid trial for Meniere diseases. Has some improvement on dizziness Naseem-Hallpike test negative for BPPV meclizine 25 mg by mouth three times a day as needed Reglan 10 mg by mouth three times a day as needed Topiramate 25 mg by mouth twice a day TSH wnl ESR pending LAN pending FTA-ABS negative CRP 0.4. Total PT/OT VS,Fishbone, I+O VS, Fishbone, I+O Laboratory Tests 12/26/18 06:38 Red Blood Count 4.08, Mean Corpuscular Volume 92.2, Mean Corpuscular Hemoglobin 31.6, Mean Corpuscular Hemoglobin Concent 34.3, Red Cell Distribution Width 12.2, Calcium Level 8.7 Vital Signs Date Time Temp Pulse Resp B/P (MAP) Pulse Ox O2 Delivery O2 Flow Rate FiO2 12/26/18 06:00 97.5 83 18 120/69 (86) 99 12/23/18 07:01 Room Air I&O- Last 24 Hours up to 6 AM 12/26/18 06:00 Intake Total 120 ml Output Total 200 ml Balance -80 ml LOC WANG DO Dec 26, 2018 14:28
[2018-12-26] MEDS: MAGNESIUM CHLORIDE 64 MG TABCR (SLO MAG) PO SCH (15:00)
[2018-12-26] MEDS: ACETAMINOPHEN TAB 650MG DOSE (2X325MG) PO PRN (15:25)
[2018-12-26 15:30] VITALS: BP 138/74
[2018-12-26] MEDS: ATORVASTATIN 20 MG TAB PO SCH (20:57)
[2018-12-26] MEDS ORDERED: LEVEMIR (INSULIN DETEMIR) 1 UNITS/0.01ML SC SCH (21:00)
[2018-12-26 22:00] VITALS: BP 121/65
[2018-12-27 06:00] VITALS: BP 138/82
[2018-12-27 06:20] LABS: HEMATOCRIT 40.5 % (36.0-47.0); HEMOGLOBIN 14.1 g/dl (12.0-15.5); MEAN CORPUSCULAR HGB CONC 34.8 g/dl (32.0-36.5); PLATELET COUNT, AUTOMATED 285 10^3/uL (150-450); WHITE BLOOD COUNT 12.5 10^3/uL (4.0-10.0)
[2018-12-27 06:54] LABS: BLOOD UREA NITROGEN 11 MG/DL (7-18); CALCIUM LEVEL 8.8 MG/DL (8.5-10.1); CARBON DIOXIDE LEVEL 23 MEQ/L (21-32); CHLORIDE LEVEL 108 MEQ/L (98-107); CREATININE FOR GFR 0.49 MG/DL (0.55-1.30); GLOMERULAR FILTRATION RATE > 60.0 (>58); GLUCOSE, FASTING 223 MG/DL (70-100); MAGNESIUM LEVEL 1.7 MG/DL (1.8-2.4); POTASSIUM SERUM 3.6 MEQ/L (3.5-5.1); SODIUM LEVEL 138 MEQ/L (136-145)
[2018-12-27] MEDS: DOCUSATE SODIUM 100 MG CAP PO SCH ×2 (09:00→09:03)
[2018-12-27] MEDS: ASPIRIN 81 MG CHEW TABLET PO SCH (09:02)
[2018-12-27] MEDS: predniSONE 20 MG TAB PO SCH (09:02)
[2018-12-27] MEDS: MAGNESIUM CHLORIDE 64 MG TABCR (SLO MAG) PO SCH (09:02)
[2018-12-27] MEDS: TOPIRAMATE (TopAMAX) 25 MG TAB PO SCH (09:03)
[2018-12-27] MEDS: HumaLOG INSULIN (NovoLOG) PER UNIT SC SCH ×2 (09:06→12:39)
[2018-12-27] MEDS: HEPARIN SOD (PORCINE) 5000 UNITS/ML VIAL SC SCH (09:06)
[2018-12-27] MEDS ORDERED: TOPA1TAB PO (13:21)
[2018-12-27] MEDS ORDERED: MECL-86 PO (13:21)
[2018-12-27] MEDS ORDERED: GLUC1TES2 XX (13:21)
[2018-12-27] MEDS ORDERED: ATOR1TAB21 PO (13:21)
[2018-12-27] MEDS ORDERED: ASPI81CH8 PO (13:21)
[2018-12-27 14:00] VITALS: BP 167/87
--- NOTE | 2018-12-27 15:45 | DS.PDOC ---
Discharge Summary General Date of Admission Dec 23, 2018 at 11:04 Date of Discharge 12/27/18 Discharge Summary PROCEDURES PERFORMED DURING STAY: None. ADMITTING DIAGNOSES: 1. Vertigo DISCHARGE DIAGNOSES: 1. Meniere's disease COMPLICATIONS/CHIEF COMPLAINT: Cva Dizziness Uncontrolled Diabetes Mellitus. HISTORY OF PRESENT ILLNESS: 43 years old female with past medical history of uncontrolled type 2 diabetes, obesity, smoker presented to the hospital with severe dizziness, nausea. Patient stated that yesterday evening when she was sitting she developed severe dizziness with feeling that the room was spinning around also stated with nausea. Patient states that she developed 2 episodes of vomiting. She did not notice any focal weakness, diplopia. Also patient had severe frontal headache 7 out of 10, constant. Of note, patient has uncontrolled diabetes type 2 due to lack of medical insurance, she uses insulin intermittently. Yesterday she checked her glucose level and it was above 200. In emergency room patient did have persistent severe nausea. HOSPITAL COURSE: Patient was admitted for vertigo and was found to have hearing loss in her right ear along with tinnitus. Patient underwent MRI of the brain which showed an old cerebellar lacunar ischemic stroke in no acute stroke. Neurology was consulted and made the diagnosis off vestibular neuritis. Patient was started on topiramate, aspirin, meclizine, Reglan. Her symptoms improved and she is medically stable to be discharged. Patient will need vestibular rehabilitation which is being arranged by bilingual case manager. Patient is also to cont inue her home meds along with the insulin for her diabetes. DISCHARGE MEDICATIONS: Please see below. ALLERGIES: Please see below. PHYSICAL EXAMINATION ON DISCHARGE: VITAL SIGNS: Please see below. General - NAD, sitting up in bed, well groomed Eyes - PERRLA, EOM intact Neck - No noticeable or palpable swelling, redness or rash around throat or on face Lymph Nodes - No lymphadenopathy Cardiovascular - RRR no m/r/g, no JVD, no carotid bruits Lungs - Clear to auscltation, no use of acessory muscles, no crackles or wheezes. Skin - No rashes, skin warm and dry, no erythematous areas Abdomen - Normal bowel sounds, abdomen soft and nontender Extremeties - No edema, cyanosis or clubbing Musculo Skeletal - 5/5 strength, normal range of motion, no swollen or erythematous joints. Neurological Alert and oriented x 3, CN 2-12 grossly intact LABORATORY DATA: Please see below. IMAGING: PROGNOSIS: ACTIVITY: As tolerated. DIET: DISCHARGE PLAN: DISPOSITION: 01 Home, Self-Care. DISCHARGE INSTRUCTIONS: 1. Follow-up with PCP and neurology within 1 week. ITEMS TO FOLLOWUP ON ON OUTPATIENT: 1. . DISCHARGE CONDITION: Stable. TIME SPENT ON DISCHARGE: Greater than 32 minutes. Vital Signs/I&Os Vital Signs Date Time Temp Pulse Resp B/P (MAP) Pulse Ox O2 Delivery O2 Flow Rate FiO2 12/27/18 14:00 96.7 79 21 167/87 (113) 96 12/23/18 07:01 Room Air I&O- Last 24 Hours up to 6 AM 12/27/18 06:00 Intake Total 1320 ml Balance 1320 ml Laboratory Data Labs 24H Laboratory Tests 2 12/26/18 17:19: Bedside Glucose (Misc Panel) 343H 12/26/18 20:32: Bedside Glucose (Misc Panel) 274H 12/27/18 05:48: Nucleated Red Blood Cells % (auto) 0.0, Anion Gap 7L, Glomerular Filtration Rate > 60.0, Blood Urea Nitrogen 11, Creatinine 0.49L, Sodium Level 138, Potassium Level 3.6, Chloride Level 108H, Carbon Dioxide Level 23, Calcium Level 8.8, Magnesium Level 1.7L 12/27/18 10:45: Bedside Glucose (Misc Panel) 246H CBC/BMP Laboratory Tests 12/27/18 05:48 Red Blood Count 4.40, Mean Corpuscular Volume 92.0, Mean Corpuscular Hemoglobin 32.0, Mean Corpuscular Hemoglobin Concent 34.8, Red Cell Distribution Width 12.1, Calcium Level 8.8 FSBS Laboratory Tests Test 12/26/18 17:19 12/26/18 20:32 12/27/18 10:45 Range/Units Bedside Glucose (Misc Panel) 343 274 246 70-105 MG/DL Microbiology Microbiology 12/25/18 Urine Culture, Received Pending Discharge Medications Scheduled Aspirin (Children's Aspirin) 81 Mg Tab.chew, 81 MG PO DAILY Atorvastatin Calcium (Atorvastatin Calcium) 20 Mg Tablet, 40 MG PO QHS Blood Sugar Diagnostic (Advanced Glucose Test Strips) 1 Each Strip, 1 STRIP XX ASDIRECTED Topiramate (Topamax) 25 Mg Tablet, 50 MG PO BID Scheduled PRN Insulin Human Lispro (Novolog) 100 U/Ml Inj, 0 SC ACHS PRN for BLOOD SUGAR, (Reported) PT USES NEEDED Meclizine HCl (Meclizine HCl) 25 Mg Tablet, 25 MG PO Q8H PRN for DIZZINESS Allergies Coded Allergies: No Known Allergies (Verified , 08/17/03) PRIMITIVO AYON MD Dec 27, 2018 15:45
[2018-12-28 00:06] LABS: ANTINUCLEAR ANTIBODIES DIRECT Negative (Negative)
== END 2018-12-27 15:09 | disposition home or self-care (01) | DRG 111 ==
LOC: M ED 02:52 → M ED INP 11:04 → EEVIPCON 11:04 → M MSPAV 20:42
PROVIDERS: ADMIT Internal Medicine; ATTEND Hospitalist
DX: H81.01 Meniere's disease, right ear (principal); E11.65 Type 2 diabetes mellitus with hyperglycemia; E66.9 Obesity, unspecified; H91.91 Unspecified hearing loss, right ear; H93.11 Tinnitus, right ear; H81.21 Vestibular neuronitis, right ear; F17.200 Nicotine dependence, unspecified, uncomplicated; Z79.4 Long term (current) use of insulin; T38.3X6A Underdosing of insulin and oral hypoglycemic [antidiabetic] drugs, initial encounter; Z91.120 Patient's intentional underdosing of medication regimen due to financial hardship; Z91.19 Patient's noncompliance with other medical treatment and regimen; Z86.73 Personal history of transient ischemic attack (TIA), and cerebral infarction without residual deficits

== ENCOUNTER 2019-01-05 08:14 | Outpatient (RCR) | payer SELFPAY ==
[~2019-01-05 08:14] MED LIST changes: +ASPI81CH8 PO; +ATOR1TAB21 PO; +GLUC1TES2 XX; +MECL-86 PO; +TOPA1TAB PO
== END 2019-01-06 ==
LOC: M PT 08:14
PROVIDERS: ATTEND Family Medicine
DX: H81.20 Vestibular neuronitis, unspecified ear (principal)

== ENCOUNTER 2019-01-16 08:15 | Outpatient (RCR) | payer SELFPAY | END 2019-02-05 | LOC: M PT 08:15 | PROVIDERS: ATTEND Family Medicine | DX: H91.20 Sudden idiopathic hearing loss, unspecified ear (principal) ==

== ENCOUNTER 2019-07-24 19:37 | Observation (INO) | payer OTHER, SELFPAY ==
[~2019-07-24] VITALS: Ht 160 cm; Wt 90.0 kg
[2019-07-24] MEDS ORDERED: BASA100I SC (19:43)
[2019-07-24] MEDS ORDERED: ASPI81TA33 PO (19:43)
[2019-07-24] MEDS ORDERED: LISI-542 PO (19:43)
--- NOTE | 2019-07-24 20:18 | REPVR ---
PROCEDURE INFORMATION: Exam: CT Head Without Contrast Exam date and time: 07/24/2019 7:53 PM Age: 44 years old Clinical indication: Numbness / parasthesia; Additional info: HX CVA, L sided numbness TECHNIQUE: Imaging protocol: Computed tomography of the head without contrast. Radiation optimization: All CT scans at this facility use at least one of these dose optimization techniques: automated exposure control; mA and/or kV adjustment per patient size (includes targeted exams where dose is matched to clinical indication); or iterative reconstruction. COMPARISON: MRI-Brain without Contrast 12/23/2018 8:46 AM FINDINGS: Brain: Normal. No hemorrhage. Unremarkable white matter. No mass effect. Ventricles: Normal. No ventriculomegaly. Bones/joints: Unremarkable. No acute fracture. Sinuses: Visualized sinuses are unremarkable. No fluid levels. Mastoid air cells: Visualized mastoid air cells are well aerated. Soft tissues: Unremarkable. IMPRESSION: No acute intracranial abnormality. Electronically signed by: Sly Stein On 07/24/2019 20:18:26 PM
[2019-07-24 20:39] LABS: BASO # 0.1 10^3/uL (0.0-0.2); BASO % 0.5 % (0.0-1.0); EOS # 0.2 10^3/uL (0.0-0.5); EOS % 2.2 % (0.0-3.0); HEMATOCRIT 42.8 % (36.0-47.0); HEMOGLOBIN 14.9 g/dl (12.0-15.5); LYMPH # 3.1 10^3/uL (1.5-5.0); LYMPH % 28.1 % (24.0-44.0); MEAN CORPUSCULAR HEMOGLOBIN 31.6 pg (27.0-33.0); MEAN CORPUSCULAR HGB CONC 34.8 g/dl (32.0-36.5); MEAN CORPUSCULAR VOLUME 90.7 fl (80.0-96.0); MONO # 0.8 10^3/uL (0.0-0.8); MONO % 7.4 % (0.0-5.0); NEUTROPHILS # 6.8 10^3/uL (1.5-8.5); NEUTROPHILS % 61.4 % (36.0-66.0); PLATELET COUNT, AUTOMATED 274 10^3/uL (150-450); RED BLOOD COUNT 4.72 10^6/uL (4.00-5.40); WHITE BLOOD COUNT 11.1 10^3/uL (4.0-10.0)
[2019-07-24 20:59] LABS: INR 0.95; PROTHROMBIN TIME 12.3 SECONDS (11.8-14.0)
[2019-07-24 21:00] LABS: PARTIAL THROMBOPLASTIN TIME 26.6 SECONDS (25.0-38.4)
[2019-07-24] MEDS ORDERED: HumaLOG INSULIN (NovoLOG) PER UNIT SC SCH (21:00)
[2019-07-24] MEDS ORDERED: ATORVASTATIN 20 MG TAB PO SCH (21:00)
[2019-07-24 21:11] LABS: HCG, SERUM QUALITATIVE NEGATIVE (NEGATIVE)
[2019-07-24 21:27] LABS: BLOOD UREA NITROGEN 17 MG/DL (7-18); CALCIUM LEVEL 8.9 MG/DL (8.5-10.1); CARBON DIOXIDE LEVEL 30 MEQ/L (21-32); CHLORIDE LEVEL 104 MEQ/L (98-107); CK-MB VALUE MASS < 1.0 NG/ML (<3.6); CPK CREATINE PHOSPHOKINASE 27 U/L (26-192); CREATININE FOR GFR 0.61 MG/DL (0.55-1.30); GLOMERULAR FILTRATION RATE > 60.0 (>58); GLUCOSE, FASTING 280 MG/DL (70-100); POTASSIUM SERUM 3.7 MEQ/L (3.5-5.1); SODIUM LEVEL 139 MEQ/L (136-145); TROPONIN I < 0.02 NG/ML (< 0.10)
--- NOTE | 2019-07-24 22:10 | REPVR ---
PROCEDURE INFORMATION: Exam: US Duplex Left Lower Extremity Veins, Limited Exam date and time: 07/24/2019 9:49 PM Age: 44 years old Clinical indication: Pain; Leg, lower; Left TECHNIQUE: Imaging protocol: Real-time Duplex ultrasound of the Left Lower Extremity with 2-D ko scale, color Doppler flow and spectral waveform analysis with image documentation. Limited exam focused on the left lower extremity veins. COMPARISON: No relevant prior studies available. FINDINGS: Left deep veins: Unremarkable. The common femoral, femoral, proximal profunda femoral and popliteal veins are patent without thrombus. Normal Doppler waveforms. Normal compressibility and/or augmentation response. Left superficial veins: Unremarkable. Saphenofemoral junction is patent without thrombus. Soft tissues: Unremarkable. IMPRESSION: No acute findings. No evidence of deep vein thrombosis. Electronically signed by: Sly Stein On 07/24/2019 22:10:22 PM
--- NOTE | 2019-07-24 22:29 | HPEPDOC ---
[facility] Medical History & Physical Date of Admission Jul 24, 2019 Date of Service: Jul 24, 2019 Primary Care Physician: MARI DENT DO Attending Physician: ANANDA WALDEN MD History and Physical CHIEF COMPLAINT: Left-sided facial, upper extremity, lower extremity numbness and tingling HISTORY OF PRESENT ILLNESS: Patient is a 44-year-old female, past medical history significant for insulin- dependent diabetes mellitus, hyperlipidemia, hypertension, obesity, who presents to the emergency department after waking up this morning at approximately 06 100 and noting new onset left lower extremity numbness and tingling. Patient states that over the course of the day, the numbness and tingling progressed up her leg. Admitted day, she noted left upper extremity numbness and tingling and left-sided facial paresthesia. This is never happened to her before. She is on any changes in medications. No known allergies. She denies any pain or discomfort. Patient does carry a history significant for old CVAs diagnosed at [facility] and 2019. Denies any history of recent history of seizures or headache. In the ED, patient was found to be afebrile, tachycardic at a rate of 102, respiratory rate of 18, blood pressure 176/75 and a pulse ox of 98% on room air. Initial laboratory evaluation demonstrated a mild leukocytosis of 11.1. BMP significant for a fasting glucose of 280. Negative cardiac markers and hCG. Patient did have a head CT performed which was negative for any acute pathology. Negative left lower extremity vascular ultrasound. Chest x-ray without any acute cardiopulmonary process. Given patient's persistent left-sided paresthesias, she will be admitted to the hospital for further workup and management. 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 PAST SURGICAL HISTORY: Tonsil and adenectomy Cholecystectomy Tubal ligation Partial hysterectomy SOCIAL HISTORY: Marital status: Resides in: Own home Employment: [employer] Tobacco use: Current nicotine user, 1/2-1 packs per day ETOH: Denies any alcohol use Illicit drug use: Denies illicit drug use including IV and marijuana Other relevant social factors: No recent travel, no sick exposures FAMILY HISTORY: Reports family history of CVA in 50s Maternal grandfather had bone and colon cancer Reports remote family history of lung cancer ALLERGIES: No known allergies REVIEW OF SYSTEMS: CONSTITUTIONAL: Patient denies any recent history of fever, chills, night sweats, generalized fatigue or changes in weight/appetite HEENT: No history headaches, photo sensitivity or eye pain. No changes in vision noted. No earache or ear pain. No rhinorrhea or nasal congestion. No difficulty swallowing. CARDIOVASCULAR: Has any chest pain, palpitations, inappropriate tachycardia RESPIRATORY: No shortness of breath, recent cough or wheeze GASTROINTESTINAL: No nausea, vomiting, reflux, abdominal pain, constipation or diarrhea GENITOURINARY: No difficulty urinating, no dysuria SKIN: No skin lesions or rashes MUSCULOSKELETAL: Denies any weakness, no joint or muscle aches/pains NEUROLOGICAL: Reports persistent left-sided facial, upper extremity and lower extremity numbness and tingling. ENDOCRINE: Reports compliance with home insulin HEMATOLOGIC/LYMPHATIC: No history of easy bruising HOME MEDICATIONS: Please see below. PHYSICAL EXAMINATION: VITAL SIGNS: Temperature 98.0, pulse 88, respiratory rate 18, blood pressure 158/78 (104), pulse oximetry 95 % on room air. GENERAL APPEARANCE: Patient interviewed and examined emergency department. She was awake alert and oriented. She's not appear to be in any acute distress. She was able to answer questions appropriately and actively participate in examination. HEENT: Normocephalic, atraumatic, PERRLA, EOMI, no rhinorrhea or nasal congestion appreciated. No posterior pharyngeal erythema. CARDIOVASCULAR: Regular rate and rhythm, normal S1 and S2, no JVD noted LUNGS: Clear to auscultation both anteriorly and posteriorly. Wheezing rales or rhonchi. Good inspiratory and expiratory effort. Breathing is even and unlabored ABDOMEN: Soft, nontender, nondistended, obese, bowel sounds throughout. No guarding appreciated MUSCULOSKELETAL: Strength 5 out of 5, patient reports posterior calf pain on the left. Please see below. EXTREMITIES: Pain with palpation of posterior calf on the left lower extremity. Some mild swelling noted in the posterior aspect of the patient's leg. Posterior tibial and radial pulses 2+ bilaterally. No noted lower extremity edema. NEUROLOGICAL: Alert and oriented 3. Cranial nerves IIIV and VIXII intact. Altered sensation in all 3 distributions of CNV. No facial weakness, no facial droop, no dysarthria, no aphasia. Altered sensation in the 5, 6, 7, and 8 dermatomal distributions of the left upper extremity. Altered sensation in the L4,5 and S1 dermatomal distributions of the left lower leg and foot. Strength 5 out of 5 in both upper and lower extremities bilaterally. C7, L4 and S1 DTRs 2 out of 4. No gait abnormalities. Finger to nose intact. PSYCHIATRIC: Mood and affect are appropriate given current medical condition. LABORATORY DATA: See below. IMAGING: Head CT (07/24/19): No acute intracranial abnormality Chest x-ray (07/24/19): Pending official radiologic read, no infiltrations or consolidations noted. Vascular ultrasound, left lower extremity (07/24/19): No acute findings. No evidence of deep vein thrombosis. ASSESSMENT: Patient is a 44-year-old female, past medical history significant for insulin- dependent diabetes mellitus, hyperlipidemia, hypertension, obesity, who presents the emergency department after waking this morning with left lower paresthesias. Per patient, this progressed to a left lower extremity left upper extremity and left facial numbness and tingling. No noted weakness, dysarthria or facial asymmetry. DTRs 2 out of [address] head performed emergency department as indicated any acute intracranial pathology. Patient will be admitted to the hospital for further management and evaluation. Plan for MRI imaging in the morning. PLAN: #Left sided facial, upper extremity, lower extremity numbness Negative head CT MRI in the morning. Echo and Doppler ultrasound of the carotids. Negative coagulopathy workup in 2019. Telemetry, neuro checks #Left calf pain Negative left lower extremity ultrasound for DVT Will consider CT evaluation of the patient's left lower extremity #Diabetes Sliding scale insulin Consistent carbohydrate diet Diabetes education #Hyperlipidemia Continue home statin #Hypertension Continue home lisinopril #Nicotine dependence Nicotine patch #Obesity Complicating care Recommend lifestyle and diet modification. Encourage 30-40 minutes of physical activity 3-4 times per week. DVT PROPHYLAXIS: Teds and sequentials DISPOSITION: Pending clinical improvement Vital Signs Vital Signs Date Time Temp Pulse Resp B/P (MAP) Pulse Ox O2 Delivery O2 Flow Rate FiO2 07/24/19 21:15 90 149/87 (107) 94 07/24/19 19:38 98.0 18 Laboratory Data Labs 24H Laboratory Tests 2 07/24/19 20:33: Immature Granulocyte % (Auto) 0.4, Neutrophils (%) (Auto) 61.4, Lymphocytes (%) (Auto) 28.1, Monocytes (%) (Auto) 7.4H, Eosinophils (%) (Auto) 2.2, Basophils (%) (Auto) 0.5, Neutrophils # (Auto) 6.8, Lymphocytes # (Auto) 3.1, Monocytes # (Auto) 0.8, Eosinophils # (Auto) 0.2, Basophils # (Auto) 0.1, Nucleated Red Blood Cells % (auto) 0.0, Prothrombin Time 12.3, Prothromb Time International Ratio 0.95, Activated Partial Thromboplast Time 26.6, Anion Gap 5L, Glomerular Filtration Rate > 60.0, Calcium Level 8.9, Total Creatine Kinase 27, Creatine Kinase MB < 1.0, Creatine Kinase MB Relative Index 3.70, Troponin I < 0.02, Human Chorionic Gonadotropin, Qual NEGATIVE CBC/BMP Laboratory Tests 07/24/19 20:33 Home Medications Scheduled Aspirin (Aspirin EC) 81 Mg Tablet.dr, 81 MG PO DAILY Atorvastatin Calcium (Atorvastatin Calcium) 40 Mg Tablet, 40 MG PO QHS Insulin Glargine,Hum.rec.anlog (Basaglar Kwikpen U-100) 100 Unit/1 Ml Insuln.pen, 40 UNITS SC BID Lisinopril (Lisinopril) 5 Mg Tablet, 5 MG PO DAILY Scheduled PRN Insulin Human Lispro (Novolog) 100 U/Ml Inj, 1 DOSE SC ACHS PRN for BLOOD SUGAR ON SLIDING SCALE NEEDED Oxycodone HCl/Acetaminophen (Percocet 5-325 mg Tablet) 1 Each Tablet, 1 TAB PO TIDP PRN for pain Allergies Coded Allergies: No Known Allergies (Verified , 07/24/19) A-FIB/CHADSVASC A-FIB History Current/History of A-Fib/PAF?: No JEFFREY MADDOX DO Jul 24, 2019 22:29
[2019-07-24] MEDS ORDERED: ATOR40TA75 PO (22:54)
[2019-07-24] MEDS ORDERED: DEXTROSE 50% 50 ML SYRINGE IV PRN (23:00)
[2019-07-24] MEDS ORDERED: MOM 30ML SUSPENSION UDC PO PRN (23:00)
[2019-07-24] MEDS ORDERED: ACETAMINOPHEN TAB 650MG DOSE (2X325MG) PO PRN (23:00)
[2019-07-24] MEDS ORDERED: GLUCAGON FOR INJ 1 MG VIAL (J1610) SC PRN (23:00)
[2019-07-24] MEDS ORDERED: GLUCOSE 4 GM CHEW TABLET PO PRN (23:00)
[2019-07-24] MEDS ORDERED: NICOTINE 7 MG/24 HR TRANSDERMAL TD ONE (23:45)
[2019-07-25 01:00] VITALS: BP 148/64
[2019-07-25 06:00] VITALS: BP 142/63
[2019-07-25 06:59] LABS: HEMATOCRIT 41.4 % (36.0-47.0); HEMOGLOBIN 13.9 g/dl (12.0-15.5); MEAN CORPUSCULAR HEMOGLOBIN 30.8 pg (27.0-33.0); MEAN CORPUSCULAR HGB CONC 33.6 g/dl (32.0-36.5); MEAN CORPUSCULAR VOLUME 91.8 fl (80.0-96.0); PLATELET COUNT, AUTOMATED 257 10^3/uL (150-450); RED BLOOD COUNT 4.51 10^6/uL (4.00-5.40); WHITE BLOOD COUNT 11.6 10^3/uL (4.0-10.0)
[2019-07-25 07:08] LABS: ALBUMIN 2.9 GM/DL (3.2-5.2); ALT/SGPT 10 U/L (12-78); BILIRUBIN,TOTAL 0.4 MG/DL (0.2-1.0); BLOOD UREA NITROGEN 18 MG/DL (7-18); CALCIUM LEVEL 8.7 MG/DL (8.5-10.1); CARBON DIOXIDE LEVEL 29 MEQ/L (21-32); CHLORIDE LEVEL 107 MEQ/L (98-107); CREATININE FOR GFR 0.51 MG/DL (0.55-1.30); GLOMERULAR FILTRATION RATE > 60.0 (>58); GLUCOSE, FASTING 171 MG/DL (70-100); MAGNESIUM LEVEL 1.8 MG/DL (1.8-2.4); POTASSIUM SERUM 3.4 MEQ/L (3.5-5.1); SODIUM LEVEL 139 MEQ/L (136-145); TOTAL PROTEIN 6.1 GM/DL (6.4-8.2)
--- NOTE | 2019-07-25 07:17 | REP ---
Clinical: Acute cerebrovascular accident . Comparison: 12/23/2018 . Findings: The mediastinum and cardiac silhouette are stable and within normal limits for portable technique. The lung barbosa are clear without acute consolidation, effusion, or pneumothorax. Skeletal structures are intact. Impression: No acute cardiopulmonary process appreciated. Electronically Signed by Chito tOero MD 07/25/2019 07:08 A
[2019-07-25] MEDS ORDERED: lisinopriL 5 MG TAB PO SCH (09:00)
[2019-07-25] MEDS ORDERED: DOCUSATE SODIUM 100 MG CAP PO SCH (09:00)
[2019-07-25] MEDS ORDERED: PROHANCE 279.3MG/ML 15ML VIAL (A9576) As Ordered ONE (09:38)
[2019-07-25] MEDS ORDERED: PROHANCE 279.3MG/ML 5ML VIAL (A9576) As Ordered ONE (09:38)
[2019-07-25 10:15] VITALS: BP 135/74
[2019-07-25] MEDS: HumaLOG INSULIN (NovoLOG) PER UNIT SC SCH ×2 (10:15→13:46)
--- NOTE | 2019-07-25 10:19 | REP ---
MRI LUMBAR SPINE WITHOUT CONTRAST: HISTORY: Left arm numbness. TECHNIQUE: Sagittal and axial T1- and T2-weighted scans are acquired in the usual fashion with and without fat saturation. Sequences include spin echo, turbo spin-echo, and STIR imaging sequences. MRI FINDINGS: There is straightening of the normal cervical lordosis. Cervical vertebral body heights are preserved. Cortical and medullary bone signal intensity are normal. The cervical cord is normal in course, caliber, and signal intensity on T1- and T2-weighted scans. Craniocervical junction is unremarkable. No extra vertebral abnormality. Axial and sagittal images at C2-3 and C3-4 are unremarkable. The C4-5 disc level shows no evidence of disc protrusion or central canal stenosis. At C5-6, there is very slight disc narrowing. No disc protrusion or neural foraminal narrowing is seen. At C6-C7 and C7-T1, there is no significant finding. IMPRESSION: Mild straightening. Minimal degenerative narrowing of the C5-6 disc. Otherwise negative MRI cervical spine. No cord compression, foraminal encroachment, or central canal stenosis seen. No cord lesion is seen. Electronically Signed by Marcelino Pastrana MD 07/25/2019 12:15 P
--- NOTE | 2019-07-25 10:21 | REP ---
MRI BRAIN WITHOUT AND WITH IV GADOLINIUM: HISTORY: Rule out multiple sclerosis. The patient reports tingling in the toes and the left hand. Comparison brain CT study July 24, 2019. Comparison brain MRI study is from December 23, 2018. TECHNIQUE: Axial and sagittal imaging planes are utilized for T1 and T2-weighted scans. Sequences include spin-echo, fast spin echo, FLAIR, and diffusion weighted sequences. The gadolinium enhancement dose is 80 mL of intravenous ProHance. MRI FINDINGS: No bony calvarial lesion is seen. There is a 1 cm T1 hypointense T2 hyperintense scalp lesion consistent with a small subgaleal cyst. This is unchanged from comparison study. Craniocervical junction and upper cervical cord are normal in appearance. There is no evidence of intraorbital abnormality. There is no MR evidence of significant paranasal sinus disease. Diffusion weighted scan images show no abnormality intracranially. There is no evidence of cerebellar peduncle lesion or other abnormal white matter lesion on effusion or T2-weighted scans. Toth-white differentiation pattern is normal. Lateral, third, fourth ventricles are normal in size and position. Postcontrast images show enhancement in normal intracranial vascular structures. No abnormal intracranial contrast enhancement is appreciated. IMPRESSION: Unremarkable brain MRI study without and with IV contrast. No intracranial lesion seen. Right occipital scalp cyst again seen. Electronically Signed by Marcelino Pastrana MD 07/25/2019 12:15 P
--- NOTE | 2019-07-25 12:09 | ECGEPIP ---
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
[2019-07-25] MEDS ORDERED: OXYC1TAB23 PO (12:17)
[2019-07-25] MEDS ORDERED: PERC5TAB12 PO ×2 (12:19→12:48)
[2019-07-25] MEDS ORDERED: PERCOCET 5MG/325MG TAB PO PRN (12:30)
--- NOTE | 2019-07-25 13:59 | IPN ---
DATE: 07/25/2019 Patient continues to complain of left-sided numbness, upper and lower extremity. No difficulty with ambulation. Afebrile overnight. No fever or chills, nausea, vomiting and diarrhea. Patient has not expressive aphagia. Patient is appropriate this morning. Vitals: Temperature 98.4 pulse 82, respiratory rate 15, blood pressure 142/63, 93% on room air. Generally: Face is symmetric, tongue is midline. Pupils round reactive to light and accommodation. Extraocular muscles are intact. No dysmetria on ndjrcj-rm-chay testing. No pronator drift. Lungs are clear to auscultation. No wheezing, rales or rhonchi. Heart S1, S2, sinus rhythm. No murmurs, rubs or gallops. Abdomen obese, soft, nontender, nondistended. Extremities: No cyanosis, clubbing or pitting edema. Motor function is 5/5 times 4 extremities. Decreased sensation in left upper and lower extremity with persistent numbness. LABORATORY DATA: White count 11.6, hemoglobin 13, hematocrit 41, platelet count 257. Sodium 139, potassium 3.4, chloride 107, bicarbonate 28, BUN 18, creatinine 0.51, glucose 171, calcium 8.7, magnesium 1.8. Total bilirubin 0.4, AST 3, ALT 10, total protein 6.1. IMAGING STUDIES: MRI of the brain with and without contrast unremarkable. No intracranial lesions seen. Cervical spine MRI: Mild straightening, minimal degenerative narrowing at C5-6, otherwise negative MRI of the spine. No cord compression, encroachment or central canal stenosis seen. No cord lesion is seen. ASSESSMENT/PLAN: This is a 44-year-old female with history of vertigo due to Meniere's disease with echo done on 12/25/2018 showing EF of 65%, normal systolic function, otherwise normal appearing echocardiogram with very mild concentric left ventricular hypertrophy (LVH) previously admitted December for complaints of dizziness and vertigo, seen by Dr. Vo, neurologist who recommended aspirin 81 daily, meclizine and Topamax at that time. 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 She now presents today with acute onset of left-sided numbness from the face, arm and legs. MRI of the brain and cervical spine are all normal. Laboratory data is normal. She complains of no acute ischemic infectious complaints. IMPRESSION: 1. Left-sided paresthesias: MRI of the brain and cervical spine are negative. Patient will need EMG and nerve conduction studies as outpatient. Neurology referral. No sign of multiple sclerosis or acute CVA on MRI. 2. Type 2 diabetes, on consistent carbohydrate diet insulin sliding scale. Check A1c and encourage compliance. 3. Hyperlipidemia on home statin. 4. Hypertension on lisinopril. 5. Nicotine dependence: Given a nicotine patch, tobacco cessation counseling has been provided. DISPOSITION: Discharge home once cleared by physical therapy. Primary care physician to refer to neurology as an outpatient for peripheral neuropathy workup. YOLYD
--- NOTE | 2019-07-25 15:46 | DS.PDOC ---
Discharge Summary General Date of Admission Jul 24, 2019 at 19:38 Date of Discharge July 25, 2019 Discharge Summary DISCHARGE DIAGNOSES: Left-sided paresthesias-NORMAL MRI BRAIN AND CERVICAL SPINE. CVA ruled out Multiple Sclerosis ruled out Peripheral Neuropathy Type 2 DM HTN Obesity BMI 35 Vertigo Metabolic Syndrome Dyslipidemia Active Tobacco Abuse DISCHARGE MEDICATIONS: pls see below DISCHARGE INSTRUCTIONS: PCP FU WITHIN 5 DAYS. PCP TO REFER TO NEUROLOGY FOR EMG/NCS, AND FURTHER WORKUP TO BE SEEN WITHIN 1-2 WKS OF DISCHARGE. Smoking Cessation counselling provided-PT refused nicotine patch at hospital discharge. HOSPITAL COURSE: This is a 44-year-old female with history of vertigo due to Meniere's disease with echo done on 12/25/2018 showing EF of 65%, normal systolic function, otherwise normal appearing echocardiogram with very mild concentric left ventricular hypertrophy (LVH) previously admitted December for complaints of dizziness and vertigo, seen by Dr. Vo, neurologist who recommended aspirin 81 daily, meclizine and Topamax at that time. 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 She now presents today with acute onset of left-sided numbness from the face, arm and legs. MRI of the brain and cervical spine are all normal. Laboratory data is normal. She complains of no acute ischemic infectious complaints. Left-sided paresthesias: MRI of the brain and cervical spine are negative. Patient will need EMG and nerve conduction studies as outpatient to rule out peripheral neuropathy.. Neurology referral by primary care physician as outpt. No sign of multiple sclerosis or acute CVA on MRI. Type 2 diabetes, on consistent carbohydrate diet insulin sliding scale. Check A1c and encourage compliance. Hyperlipidemia on home statin. Hypertension on lisinopril. Nicotine dependence: Given a nicotine patch, tobacco cessation counseling has been provided. DISCHARGE PHYSICAL EXAMINATION: Generally: Face is symmetric, tongue is midline. Pupils round reactive to light and accommodation. Extraocular muscles are intact. No dysmetria on [id number]-hb-[id number] testing. No pronator drift. Lungs are clear to auscultation. No wheezing, rales or rhonchi. Heart S1, S2, sinus rhythm. No murmurs, rubs or gallops. Abdomen obese, soft, nontender, nondistended. Extremities: No cyanosis, clubbing or pitting edema. Motor function is 5/5 times 4 extremities. Decreased sensation in left upper and lower extremity with persistent numbness. DISCHARGE LABORATORY DATA, IMAGING STUDIES, MICROBIOLOGY: White count 11.6, hemoglobin 13, hematocrit 41, platelet count 257. Sodium 139, potassium 3.4, chloride 107, bicarbonate 28, BUN 18, creatinine 0.51, glucose 171, calcium 8.7, magnesium 1.8. Total bilirubin 0.4, AST 3, ALT 10, total protein 6.1. MRI BRAIN WITHOUT AND WITH IV GADOLINIUM: HISTORY: Rule out multiple sclerosis. The patient reports tingling in the toes and the left hand. Comparison brain CT study July 24, 2019. Comparison brain MRI study is from December 23, 2018. TECHNIQUE: Axial and sagittal imaging planes are utilized for T1 and T2- weighted scans. Sequences include spin-echo, fast spin echo, FLAIR, and diffusion weighted sequences. The gadolinium enhancement dose is 80 mL of intravenous ProHance. MRI FINDINGS: No bony calvarial lesion is seen. There is a 1 cm T1 hypointense T2 hyperintense scalp lesion consistent with a small subgaleal cyst. This is unchanged from comparison study. Craniocervical junction and upper cervical cord are normal in appearance. There is no evidence of intraorbital abnormality. There is no MR evidence of significant paranasal sinus disease. Diffusion weighted scan images show no abnormality intracranially. There is no evidence of cerebellar peduncle lesion or other abnormal white matter lesion on effusion or T2-weighted scans. Toth-white differentiation pattern is normal. Lateral, third, fourth ventricles are normal in size and position. Postcontrast images show enhancement in normal intracranial vascular structures. No abnormal intracranial contrast enhancement is appreciated. IMPRESSION: Unremarkable brain MRI study without and with IV contrast. No intracranial lesion seen. Right occipital scalp cyst again seen. Electronically Signed by Marcelino Pastrana MD 07/25/2019 12:15 P DD: Marcelino Pastrana MD 07/25/19 0958 DT: SUSAN 07/25/19 1019 DS: YODIT 07/25/19 1215 07/25/19 1215 MRI LUMBAR SPINE WITHOUT CONTRAST: HISTORY: Left arm numbness. TECHNIQUE: Sagittal and axial T1- and T2-weighted scans are acquired in the usual fashion with and without fat saturation. Sequences include spin echo, turbo spin-echo, and STIR imaging sequences. MRI FINDINGS: There is straightening of the normal cervical lordosis. Cervical vertebral body heights are preserved. Cortical and medullary bone signal intensity are normal. The cervical cord is normal in course, caliber, and signal intensity on T1- and T2-weighted scans. Craniocervical junction is unremarka ble. No extra vertebral abnormality. Axial and sagittal images at C2-3 and C3-4 are unremarkable. The C4-5 disc level shows no evidence of disc protrusion or central canal stenosis. At C5-6, there is very slight disc narrowing. No disc protrusion or neural foraminal narrowing is seen. At C6-C7 and C7-T1, there is no significant finding. IMPRESSION: Mild straightening. Minimal degenerative narrowing of the C5-6 disc. Otherwise negative MRI cervical spine. No cord compression, foraminal encroachment, or central canal stenosis seen. No cord lesion is seen. Electronically Signed by Mareclino Pastrana MD 07/25/2019 12:15 P DD: Marcelino Pastrana MD 07/25/19 0953 DT: SUSAN 07/25/19 1017 DS: YODIT 07/25/19 1215 07/25/19 1215 PROCEDURE INFORMATION: Exam: US Duplex Left Lower Extremity Veins, Limited Exam date and time: 07/24/2019 9:49 PM Age: 44 years old Clinical indication: Pain; Leg, lower; Left TECHNIQUE: Imaging protocol: Real-time Duplex ultrasound of the Left Lower Extremity with 2-D toth scale, color Doppler flow and spectral waveform analysis with image documentation. Limited exam focused on the left lower extremity veins. COMPARISON: No relevant prior studies available. FINDINGS: Left deep veins: Unremarkable. The common femoral, femoral, proximal profunda femoral and popliteal veins are patent without thrombus. Normal Doppler waveforms. Normal compressibility and/or augmentation response. Left superficial veins: Unremarkable. Saphenofemoral junction is patent without thrombus. Soft tissues: Unremarkable. IMPRESSION: No acute findings. No evidence of deep vein thrombosis. Electronically signed by: Sly Stein On 07/24/2019 22:10:22 PM DD: SLY STEIN MD 07/24/199 DT: JAM 07/24/192209 DS: PATRICIA 07/24/192209 Clinical: Acute cerebrovascular accident . Comparison: 12/23/2018 . Findings: The mediastinum and cardiac silhouette are stable and within normal limits for portable technique. The lung barbosa are clear without acute consolidation, effusion, or pneumothorax. Skeletal structures are intact. Impression: No acute cardiopulmonary process appreciated. Electronically Signed by Chito Otero MD 07/25/2019 07:08 A DD: Chito Otero MD 07/25/19707 DT: Quintin 07/25/19707 DS: RUFUS 07/25/1970707/25/19707 PROCEDURE INFORMATION: Exam: CT Head Without Contrast Exam date and time: 07/24/2019 7:53 PM Age: 44 years old Clinical indication: Numbness / parasthesia; Additional info: HX CVA, L sided numbness TECHNIQUE: Imaging protocol: Computed tomography of the head without contrast. Radiation optimization: All CT scans at this facility use at least one of these dose optimization techniques: automated exposure control; mA and/or kV adjustment per patient size (includes targeted exams where dose is matched to clinical indication); or iterative reconstruction. COMPARISON: MRI-Brain without Contrast 12/23/2018 8:46 AM FINDINGS: Brain: Normal. No hemorrhage. Unremarkable white matter. No mass effect. Ventricles: Normal. No ventriculomegaly. Bones/joints: Unremarkable. No acute fracture. Sinuses: Visualized sinuses are unremarkable. No fluid levels. Mastoid air cells: Visualized mastoid air cells are well aerated. Soft tissues: Unremarkable. IMPRESSION: No acute intracranial abnormality. Electronically signed by: Sly Stein On 07/24/2019 20:18:26 PM DD: SLY STEIN MD 07/24/191952 DT: JAM 07/24/192017 TIME SPENT ON DISCHARGE: 30 MINUTES Vital Signs/I&Os Vital Signs Date Time Temp Pulse Resp B/P (MAP) Pulse Ox O2 Delivery O2 Flow Rate FiO2 07/25/19 10:15 135/74 07/25/19 06:00 98.4 82 15 93 Room Air I&O- Last 24 Hours up to 6 AM 07/25/19 06:00 Intake Total 250 ml Balance 250 ml Laboratory Data Labs 24H Laboratory Tests 2 07/24/19 20:33: Immature Granulocyte % (Auto) 0.4, Neutrophils (%) (Auto) 61.4, Lymphocytes (%) (Auto) 28.1, Monocytes (%) (Auto) 7.4H, Eosinophils (%) (Auto) 2.2, Basophils (% ) (Auto) 0.5, Neutrophils # (Auto) 6.8, Lymphocytes # (Auto) 3.1, Monocytes # (Auto) 0.8, Eosinophils # (Auto) 0.2, Basophils # (Auto) 0.1, Nucleated Red Blood Cells % (auto) 0.0, Prothrombin Time 12.3, Prothromb Time International Ratio 0.95, Activated Partial Thromboplast Time 26.6, Anion Gap 5L, Glomerular Filtration Rate > 60.0, Calcium Level 8.9, Total Creatine Kinase 27, Creatine Kinase MB < 1.0, Creatine Kinase MB Relative Index 3.70, Troponin I < 0.02, Human Chorionic Gonadotropin, Qual NEGATIVE 07/24/19 23:28: Bedside Glucose (Misc Panel) 266H 07/25/19 05:57: Nucleated Red Blood Cells % (auto) 0.0, Anion Gap 3L, Glomerular Filtration Rate > 60.0, Calcium Level 8.7, Magnesium Level 1.8, Total Bilirubin 0.4, Aspartate Amino Transf (AST/SGOT) 3L, Alanine Aminotransferase (ALT/SGPT) 10L, Alkaline Phosphatase 73, Total Protein 6.1L, Albumin 2.9L, Albumin/Globulin Ratio 0.91L 07/25/19 10:12: Bedside Glucose (Misc Panel) 185H 07/25/19 11:42: Bedside Glucose (Misc Panel) 285H CBC/BMP Laboratory Tests 07/24/19 20:33 07/25/19 05:57 FSBS Laboratory Tests Test 07/24/19 23:28 07/25/19 10:12 07/25/19 11:42 Range/Units Bedside Glucose (Misc Panel) 266 185 285 70-105 MG/DL Discharge Medications Scheduled Aspirin (Aspirin EC) 81 Mg Tablet.dr, 81 MG PO DAILY, (Reported) Atorvastatin Calcium (Atorvastatin Calcium) 40 Mg Tablet, 40 MG PO QHS, (Reported) Insulin Glargine,Hum.rec.anlog (Basaglar Kwikpen U-100) 100 Unit/1 Ml Insuln.pen, 40 UNITS SC BID, (Reported) Lisinopril (Lisinopril) 5 Mg Tablet, 5 MG PO DAILY, (Reported) Scheduled PRN Insulin Human Lispro (Novolog) 100 U/Ml Inj, 1 DOSE SC ACHS PRN for BLOOD SUGAR, (Reported) ON SLIDING SCALE NEEDED Oxycodone HCl/Acetaminophen (Percocet 5-325 mg Tablet) 1 Each Tablet, 1 TAB PO TIDP PRN for pain Allergies Coded Allergies: No Known Allergies (Verified , 07/24/19) KAROLINA VELAZQUEZ MD Jul 25, 2019 15:35
== END 2019-07-25 15:15 | disposition home or self-care (01) ==
LOC: M ED 19:37 → M ED INP 19:38 → ENRESERV 23:45 → M MSPAV 07-25 00:57
PROVIDERS: ADMIT Internal Medicine; ATTEND Internal Medicine
DX: R20.2 Paresthesia of skin (principal); G90.09 Other idiopathic peripheral autonomic neuropathy; E11.9 Type 2 diabetes mellitus without complications; I10 Essential (primary) hypertension; E66.9 Obesity, unspecified; R42 Dizziness and giddiness; E88.81 Metabolic syndrome and other insulin resistance; E78.49 Other hyperlipidemia; F17.218 Nicotine dependence, cigarettes, with other nicotine-induced disorders; Z79.4 Long term (current) use of insulin; Z79.899 Other long term (current) drug therapy; Z79.82 Long term (current) use of aspirin; Z86.73 Personal history of transient ischemic attack (TIA), and cerebral infarction without residual deficits
CPT/HCPCS: 36415; 70450; 70553; 71045; 72141; 80048; 80053; 82550; 82553; 83735; 84703; 85025; 85027; 85610; 85730; 86850; 86900; 86901; 93005; 93041; 93971; 94760; 99285; A9576

== ENCOUNTER 2019-11-12 20:18 | Emergency (ER) | payer OTHER ==
[~2019-11-12] VITALS: Ht 160 cm; Wt 92.2 kg
[~2019-11-12 20:18] MED LIST changes: +ASPI81TA33 PO; +ATOR40TA75 PO; +BASA100I SC; +PERC5TAB12 PO
--- NOTE | 2019-11-12 20:56 | REPVR ---
PROCEDURE INFORMATION: Exam: CT Head Without Contrast Exam date and time: 11/12/2019 8:33 PM Age: 44 years old Clinical indication: Other: Neuro SX TECHNIQUE: Imaging protocol: Computed tomography of the head without contrast. Radiation optimization: All CT scans at this facility use at least one of these dose optimization techniques: automated exposure control; mA and/or kV adjustment per patient size (includes targeted exams where dose is matched to clinical indication); or iterative reconstruction. COMPARISON: CT Head without contrast 07/24/2019 7:49 PM FINDINGS: Brain: Normal. No hemorrhage. Unremarkable white matter. No mass effect. Ventricles: Normal. No ventriculomegaly. Bones/joints: Unremarkable. No acute fracture. Sinuses: Visualized sinuses are unremarkable. No fluid levels. Mastoid air cells: Visualized mastoid air cells are well aerated. Soft tissues: Unremarkable. IMPRESSION: No acute intracranial abnormality. Electronically signed by: Sly Stein On 11/12/2019 20:56:35 PM
[2019-11-12] MEDS ORDERED: MECL1TAB31 PO (20:58)
[2019-11-12 21:09] LABS: BASO # 0.1 10^3/uL (0.0-0.2); BASO % 0.7 % (0.0-1.0); EOS # 0.3 10^3/uL (0.0-0.5); EOS % 3.4 % (0.0-3.0); HEMATOCRIT 45.2 % (36.0-47.0); HEMOGLOBIN 15.6 g/dl (12.0-15.5); LYMPH # 3.2 10^3/uL (1.5-5.0); MEAN CORPUSCULAR HEMOGLOBIN 31.8 pg (27.0-33.0); MEAN CORPUSCULAR HGB CONC 34.5 g/dl (32.0-36.5); MEAN CORPUSCULAR VOLUME 92.2 fl (80.0-96.0); MONO # 0.7 10^3/uL (0.0-0.8); MONO % 7.3 % (0.0-5.0); NEUTROPHILS # 5.6 10^3/uL (1.5-8.5); NEUTROPHILS % 56.3 % (36.0-66.0); PLATELET COUNT, AUTOMATED 312 10^3/uL (150-450)
[2019-11-12 21:14] LABS: INR 0.92; PARTIAL THROMBOPLASTIN TIME 25.6 SECONDS (25.0-38.4); PROTHROMBIN TIME 12.1 SECONDS (11.8-14.0)
[2019-11-12] MEDS ORDERED: diazePAM 10MG/2ML SYRINGE (J3360 PER 5MG) IV ONE (21:15)
[2019-11-12] MEDS ORDERED: METOCLOPRAMIDE INJ 10MG/2ML VIAL (J2765 PER 1) IV ONE (21:15)
[2019-11-12] MEDS ORDERED: NS 1,000 ML IV ONE ×2 (21:15)
[2019-11-12] MEDS ORDERED: KETOROLAC 30 MG/ML 1ML VIAL IV ONE (21:15)
[2019-11-12 21:21] LABS: CK-MB VALUE MASS < 1.0 NG/ML (<3.6); CPK CREATINE PHOSPHOKINASE 26 U/L (26-192); MB/CK RELATIVE INDEX 3.85 (< OR =4); TROPONIN I < 0.02 NG/ML (< 0.10)
[2019-11-12] MEDS ORDERED: TOPA1TAB PO (23:04)
[2019-11-12 23:18] VITALS: BP 140/80
--- NOTE | 2019-11-13 08:22 | ECGEPIP ---
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
--- NOTE | 2019-11-13 11:06 | REP ---
REASON: Stroke-like symptoms. COMPARISON: 07/24/2019 FINDINGS: The technique utilized in obtaining the radiograph has magnified the cardiac silhouette and accentuated the interstitial markings. The superior mediastinal structures are midline. The cardiac silhouette is unremarkable in size, shape, and position. The diaphragmatic surfaces of the lungs are regular, and the costophrenic angles are clear. The pulmonary barbosa are clear. The imaged osseous structures are intact. IMPRESSION: There is no acute cardiopulmonary disease. Electronically Signed by Kyle Blake DO 11/13/2019 05:22 P
== END 2019-11-12 23:32 | disposition home or self-care (01) ==
LOC: M ED 20:18
DX: R42 Dizziness and giddiness (principal); E11.9 Type 2 diabetes mellitus without complications; F17.210 Nicotine dependence, cigarettes, uncomplicated; Z79.899 Other long term (current) drug therapy; Z79.82 Long term (current) use of aspirin; Z79.4 Long term (current) use of insulin; Z86.73 Personal history of transient ischemic attack (TIA), and cerebral infarction without residual deficits
CPT/HCPCS: 70450; 71045; 80047; 82550; 82553; 85025; 85610; 85730; 86850; 86900; 86901; 93005; 93041; 94760; 96361; 96374; 96375; 99285; J1885; J2765; J3360

== ENCOUNTER 2019-11-14 19:02 | Emergency (ER) | payer OTHER ==
[~2019-11-14] VITALS: Ht 160 cm; Wt 103.0 kg
[~2019-11-14 19:02] MED LIST changes: +MECL1TAB31 PO
[2019-11-14] MEDS ORDERED: diphenhydrAMINE 50MG/ML VIAL (J1200) IV ONE (20:15)
[2019-11-14] MEDS ORDERED: NS 1,000 ML IV ONE ×2 (20:15)
[2019-11-14] MEDS ORDERED: ACETAMINOPHEN 500 MG TAB PO ONE (20:15)
[2019-11-14] MEDS ORDERED: METOCLOPRAMIDE INJ 10MG/2ML VIAL (J2765 PER 1) IV ONE (20:15)
--- NOTE | 2019-11-14 20:42 | REPVR ---
PROCEDURE INFORMATION: Exam: CT Head Without Contrast Exam date and time: 11/14/2019 8:28 PM Age: 44 years old Clinical indication: Other: CVA; Additional info: CVA - nursing interventions must not delay CT TECHNIQUE: Imaging protocol: Computed tomography of the head without contrast. Axial and coronal reformatted images were created and reviewed. Radiation optimization: All CT scans at this facility use at least one of these dose optimization techniques: automated exposure control; mA and/or kV adjustment per patient size (includes targeted exams where dose is matched to clinical indication); or iterative reconstruction. COMPARISON: CT Head without contrast 11/12/2019 8:30 PM FINDINGS: Brain: 1 x 0.6 cm focus of hypoattenuation in the posterior limb of the right external capsule, slightly more conspicuous since the current study and possibly reflecting a focus of involving ischemia. No CT evidence of acute intracranial hemorrhage or acute territorial infarction. No significant mass effect or midline shift. Basal cisterns patent. Ventricles: Normal in size and configuration. Bones/joints: No acute osseous abnormality. Sinuses: Minimal ethmoid mucosal thickening. Mastoid air cells: Grossly unremarkable. Soft tissues: Grossly unremarkable. IMPRESSION: 1 x 0.6 cm focus of hypoattenuation in the posterior limb of the right external capsule, slightly more conspicuous since the current study and possibly reflecting a focus of involving subacute ischemia. Electronically signed by: Hilton Edmonds On 11/14/2019 20:42:03 PM
[2019-11-14 21:07] LABS: BASO # 0.1 10^3/uL (0.0-0.2); BASO % 0.7 % (0.0-1.0); EOS # 0.3 10^3/uL (0.0-0.5); EOS % 3.8 % (0.0-3.0); HEMATOCRIT 43.4 % (36.0-47.0); HEMOGLOBIN 15.1 g/dl (12.0-15.5); LYMPH # 3.3 10^3/uL (1.5-5.0); LYMPH % 37.2 % (24.0-44.0); MEAN CORPUSCULAR HEMOGLOBIN 32.1 pg (27.0-33.0); MEAN CORPUSCULAR HGB CONC 34.8 g/dl (32.0-36.5); MEAN CORPUSCULAR VOLUME 92.3 fl (80.0-96.0); MONO # 0.6 10^3/uL (0.0-0.8); MONO % 6.5 % (0.0-5.0); NEUTROPHILS # 4.7 10^3/uL (1.5-8.5); NEUTROPHILS % 51.6 % (36.0-66.0); PLATELET COUNT, AUTOMATED 288 10^3/uL (150-450)
[2019-11-14 21:28] LABS: ERYTHROCYTE SEDIMENTATION RATE 17 mm/hr (0-20)
[2019-11-14 21:32] LABS: BLOOD UREA NITROGEN 18 MG/DL (7-18); C REACTIVE PROTEIN QUANTITATIV 0.79 MG/DL (0.00-0.30); CALCIUM LEVEL 8.9 MG/DL (8.5-10.1); CARBON DIOXIDE LEVEL 27 MEQ/L (21-32); CHLORIDE LEVEL 111 MEQ/L (98-107); CK-MB VALUE MASS < 1.0 NG/ML (<3.6); CPK CREATINE PHOSPHOKINASE 25 U/L (26-192); CREATININE FOR GFR 0.46 MG/DL (0.55-1.30); GLOMERULAR FILTRATION RATE > 60.0 (>58); GLUCOSE, FASTING 136 MG/DL (70-100); POTASSIUM SERUM 3.6 MEQ/L (3.5-5.1); SODIUM LEVEL 143 MEQ/L (136-145); TROPONIN I < 0.02 NG/ML (< 0.10)
[2019-11-14] MEDS ORDERED: HYDROMORPHONE HCL 0.5 MG/ 0.5 ML SYRINGE (J1170 PER 1) IV ONE (23:15)
[2019-11-14 23:48] VITALS: BP 187/87
[2019-11-15] MEDS ORDERED: ONDANSETRON 4MG/2ML VIAL IV ONE
--- NOTE | 2019-11-15 00:43 | ECGEPIP ---
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
== END 2019-11-15 00:06 | disposition short-term general hospital (02) ==
LOC: M ED 19:02
DX: I63.9 Cerebral infarction, unspecified (principal); I10 Essential (primary) hypertension; E11.9 Type 2 diabetes mellitus without complications; E78.5 Hyperlipidemia, unspecified; R42 Dizziness and giddiness; F17.200 Nicotine dependence, unspecified, uncomplicated; Z82.3 Family history of stroke; Z79.899 Other long term (current) drug therapy; Z79.4 Long term (current) use of insulin; Z79.82 Long term (current) use of aspirin
CPT/HCPCS: 70450; 80048; 82550; 82553; 85025; 85652; 86140; 93005; 93041; 96361; 96374; 96375; 99285; J1170; J1200; J2405; J2765; U0002

== ENCOUNTER → 2021-11-10 | Outpatient (CLI) | payer OTHER ==
[~2021-11-10] MED LIST changes: -LISI-542 PO; +LISI5TAB11 PO
[2021-11-10 11:18] LABS: BASO # 0.1 10^3/uL (0.0-0.2); BASO % 0.6 % (0.0-1.0); EOS # 0.3 10^3/uL (0.0-0.5); EOS % 3.5 % (0.0-3.0); HEMATOCRIT 38.6 % (36.0-47.0); HEMOGLOBIN 13.3 g/dl (12.0-15.5); LYMPH % 30.9 % (24.0-44.0); MEAN CORPUSCULAR HEMOGLOBIN 32.2 pg (27.0-33.0); MEAN CORPUSCULAR HGB CONC 34.5 g/dl (32.0-36.5); MEAN CORPUSCULAR VOLUME 93.5 fl (80.0-96.0); MONO # 0.7 10^3/uL (0.0-0.8); MONO % 6.9 % (2.0-8.0); NEUTROPHILS # 5.6 10^3/uL (1.5-8.5); NEUTROPHILS % 57.7 % (36.0-66.0); PLATELET COUNT, AUTOMATED 293 10^3/uL (150-450); RED BLOOD COUNT 4.13 10^6/uL (4.00-5.40); WHITE BLOOD COUNT 9.7 10^3/uL (4.0-10.0)
[2021-11-10 11:37] LABS: INR 0.83; PARTIAL THROMBOPLASTIN TIME 27.3 SECONDS (25.9-37.0); PROTHROMBIN TIME 11.8 SECONDS (12.7-14.5)
[2021-11-10 11:55] LABS: BLOOD UREA NITROGEN 18 MG/DL (7-18); CALCIUM LEVEL 8.9 MG/DL (8.5-10.1); CARBON DIOXIDE LEVEL 26 MEQ/L (21-32); CHLORIDE LEVEL 105 MEQ/L (98-107); CREATININE FOR GFR 0.64 MG/DL (0.55-1.30); GLOMERULAR FILTRATION RATE > 60.0 (>58); GLUCOSE, FASTING 209 MG/DL (70-100); POTASSIUM SERUM 4.1 MEQ/L (3.5-5.1); SODIUM LEVEL 138 MEQ/L (136-145)
== END ==
LOC: M LAB 10:28
PROVIDERS: ATTEND Family Medicine
DX: D69.8 Other specified hemorrhagic conditions (principal)

== ENCOUNTER → 2021-11-10 | Outpatient (CLI) | payer OTHER | LOC: M LABSMTC 11:05 | PROVIDERS: ATTEND Surgery Vascular Surgery | DX: Z20.822 Contact with and (suspected) exposure to COVID-19 (principal) ==

== ENCOUNTER 2022-02-02 23:13 | Emergency (ER) | payer OTHER ==
[~2022-02-02] VITALS: Ht 160 cm; Wt 104.5 kg
[2022-02-02 23:32] VITALS: BP 157/69
[2022-02-03] MEDS ORDERED: GABA-283 PO ×2 (00:04)
[2022-02-03] MEDS ORDERED: CLOP75TA2 PO (00:05)
[2022-02-03] MEDS ORDERED: ACETAMINOPHEN 325 MG TAB PO ONE (01:00)
== END 2022-02-03 01:25 | disposition left against medical advice (07) ==
LOC: EDBD 23:13 → M ED 23:13
DX: Z53.21 Procedure and treatment not carried out due to patient leaving prior to being seen by health care provider (principal)

== ENCOUNTER → 2022-02-22 | Outpatient (REF) | payer OTHER ==
[~2022-02-22] MED LIST changes: +CLOP75TA2 PO; +GABA-283 PO
[2022-02-22 18:13] LABS: HEMATOCRIT 25.9 % (36.0-47.0); HEMOGLOBIN 8.3 g/dl (12.0-15.5); MEAN CORPUSCULAR HEMOGLOBIN 30.4 pg (27.0-33.0); MEAN CORPUSCULAR VOLUME 94.9 fl (80.0-96.0); PLATELET COUNT, AUTOMATED 761 10^3/uL (150-450); RED BLOOD COUNT 2.73 10^6/uL (4.00-5.40); WHITE BLOOD COUNT 13.6 10^3/uL (4.0-10.0)
[2022-02-22 18:32] LABS: ALBUMIN 2.2 GM/DL (3.2-5.2); ALT/SGPT 15 U/L (12-78); BILIRUBIN,TOTAL 0.4 MG/DL (0.2-1.0); BLOOD UREA NITROGEN 13 MG/DL (7-18); CALCIUM LEVEL 9.1 MG/DL (8.5-10.1); CARBON DIOXIDE LEVEL 27 MEQ/L (21-32); CHLORIDE LEVEL 109 MEQ/L (98-107); CREATININE FOR GFR 1.03 MG/DL (0.55-1.30); GLOMERULAR FILTRATION RATE > 60.0 (>58); GLUCOSE, FASTING 169 MG/DL (70-100); POTASSIUM SERUM 3.2 MEQ/L (3.5-5.1); SODIUM LEVEL 145 MEQ/L (136-145)
== END ==
LOC: M LAB REF 17:31
PROVIDERS: ATTEND Physician Assistant
DX: I70.612 Atherosclerosis of nonbiological bypass graft(s) of the extremities with intermittent claudication, left leg (principal); Z48.812 Encounter for surgical aftercare following surgery on the circulatory system

== ENCOUNTER → 2022-03-01 | Outpatient (REF) | payer OTHER ==
[2022-03-01 13:36] LABS: HEMATOCRIT 26.9 % (36.0-47.0); HEMOGLOBIN 8.5 g/dl (12.0-15.5); MEAN CORPUSCULAR HEMOGLOBIN 30.2 pg (27.0-33.0); MEAN CORPUSCULAR HGB CONC 31.6 g/dl (32.0-36.5); MEAN CORPUSCULAR VOLUME 95.7 fl (80.0-96.0); PLATELET COUNT, AUTOMATED 418 10^3/uL (150-450); RED BLOOD COUNT 2.81 10^6/uL (4.00-5.40)
[2022-03-01 14:33] LABS: ALBUMIN 2.3 GM/DL (3.2-5.2); ALT/SGPT 34 U/L (12-78); BILIRUBIN,TOTAL 0.2 MG/DL (0.2-1.0); BLOOD UREA NITROGEN 10 MG/DL (7-18); CALCIUM LEVEL 8.5 MG/DL (8.5-10.1); CARBON DIOXIDE LEVEL 30 MEQ/L (21-32); CHLORIDE LEVEL 105 MEQ/L (98-107); CREATININE FOR GFR 0.82 MG/DL (0.55-1.30); GLOMERULAR FILTRATION RATE > 60.0 (>58); GLUCOSE, FASTING 210 MG/DL (70-100); POTASSIUM SERUM 2.6 MEQ/L (3.5-5.1); SODIUM LEVEL 143 MEQ/L (136-145); TOTAL PROTEIN 6.4 GM/DL (6.4-8.2)
== END ==
LOC: M LAB REF 13:19
PROVIDERS: ATTEND Physician Assistant
DX: I70.612 Atherosclerosis of nonbiological bypass graft(s) of the extremities with intermittent claudication, left leg (principal); Z48.812 Encounter for surgical aftercare following surgery on the circulatory system

== ENCOUNTER → 2022-03-08 | Outpatient (REF) | payer OTHER ==
[2022-03-08 13:16] LABS: BASO # 0.1 10^3/uL (0.0-0.2); BASO % 0.9 % (0.0-1.0); EOS # 0.4 10^3/uL (0.0-0.5); EOS % 5.1 % (0.0-3.0); HEMATOCRIT 30.1 % (36.0-47.0); HEMOGLOBIN 9.8 g/dl (12.0-15.5); MEAN CORPUSCULAR HEMOGLOBIN 30.6 pg (27.0-33.0); MEAN CORPUSCULAR HGB CONC 32.6 g/dl (32.0-36.5); MEAN CORPUSCULAR VOLUME 94.1 fl (80.0-96.0); MONO # 0.5 10^3/uL (0.0-0.8); MONO % 5.7 % (2.0-8.0); NEUTROPHILS # 3.9 10^3/uL (1.5-8.5); NEUTROPHILS % 49.9 % (36.0-66.0); PLATELET COUNT, AUTOMATED 414 10^3/uL (150-450); WHITE BLOOD COUNT 7.9 10^3/uL (4.0-10.0)
[2022-03-08 13:17] LABS: HEMOGLOBIN A1c 7.1 %
[2022-03-08 13:31] LABS: ALBUMIN 2.6 GM/DL (3.2-5.2); ALT/SGPT 23 U/L (12-78); BILIRUBIN,TOTAL 0.1 MG/DL (0.2-1.0); BLOOD UREA NITROGEN 13 MG/DL (7-18); CALCIUM LEVEL 9.1 MG/DL (8.5-10.1); CARBON DIOXIDE LEVEL 26 MEQ/L (21-32); CHLORIDE LEVEL 108 MEQ/L (98-107); CHOLESTEROL LEVEL 104 MG/DL (<200); CREATININE FOR GFR 0.69 MG/DL (0.55-1.30); GLOMERULAR FILTRATION RATE > 60.0 (>58); GLUCOSE, FASTING 144 MG/DL (70-100); HDL CHOLESTEROL 40 MG/DL (>40); LDL CHOLESTEROL 32 MG/DL (<100); NON-HDL-C 64 MG/DL; POTASSIUM SERUM 3.2 MEQ/L (3.5-5.1); SODIUM LEVEL 140 MEQ/L (136-145); THYROID STIMULATING HORMONE 0.426 uIU/ML (0.358-3.740); TOTAL PROTEIN 6.5 GM/DL (6.4-8.2); TRIGLYCERIDES LEVEL 158 MG/DL (<150)
== END ==
LOC: M LAB REF 12:19
PROVIDERS: ATTEND Nurse Practitioner Family
DX: Z00.01 Encounter for general adult medical examination with abnormal findings (principal); E11.65 Type 2 diabetes mellitus with hyperglycemia; Z79.899 Other long term (current) drug therapy

== ENCOUNTER → 2022-03-15 | Outpatient (REF) | payer OTHER ==
[2022-03-15 13:26] LABS: HEMATOCRIT 31.4 % (36.0-47.0); HEMOGLOBIN 10.2 g/dl (12.0-15.5); MEAN CORPUSCULAR HEMOGLOBIN 30.3 pg (27.0-33.0); MEAN CORPUSCULAR HGB CONC 32.5 g/dl (32.0-36.5); MEAN CORPUSCULAR VOLUME 93.2 fl (80.0-96.0); PLATELET COUNT, AUTOMATED 357 10^3/uL (150-450); RED BLOOD COUNT 3.37 10^6/uL (4.00-5.40); WHITE BLOOD COUNT 6.8 10^3/uL (4.0-10.0)
[2022-03-15 15:21] LABS: ALBUMIN 2.9 GM/DL (3.2-5.2); ALT/SGPT 24 U/L (12-78); BILIRUBIN,TOTAL 0.1 MG/DL (0.2-1.0); BLOOD UREA NITROGEN 11 MG/DL (7-18); CALCIUM LEVEL 9.2 MG/DL (8.5-10.1); CARBON DIOXIDE LEVEL 24 MEQ/L (21-32); CHLORIDE LEVEL 106 MEQ/L (98-107); CREATININE FOR GFR 0.65 MG/DL (0.55-1.30); GLOMERULAR FILTRATION RATE > 60.0 (>58); GLUCOSE, FASTING 280 MG/DL (70-100); POTASSIUM SERUM 3.5 MEQ/L (3.5-5.1); SODIUM LEVEL 138 MEQ/L (136-145); TOTAL PROTEIN 6.5 GM/DL (6.4-8.2)
== END ==
LOC: M LAB REF 13:09
PROVIDERS: ATTEND Physician Assistant
DX: I70.612 Atherosclerosis of nonbiological bypass graft(s) of the extremities with intermittent claudication, left leg (principal); Z48.812 Encounter for surgical aftercare following surgery on the circulatory system

== ENCOUNTER → 2022-03-22 | Outpatient (REF) | payer OTHER ==
[2022-03-22 15:15] LABS: HEMATOCRIT 34.7 % (36.0-47.0); HEMOGLOBIN 11.2 g/dl (12.0-15.5); MEAN CORPUSCULAR HEMOGLOBIN 29.8 pg (27.0-33.0); MEAN CORPUSCULAR HGB CONC 32.3 g/dl (32.0-36.5); MEAN CORPUSCULAR VOLUME 92.3 fl (80.0-96.0); PLATELET COUNT, AUTOMATED 435 10^3/uL (150-450); RED BLOOD COUNT 3.76 10^6/uL (4.00-5.40); WHITE BLOOD COUNT 7.8 10^3/uL (4.0-10.0)
[2022-03-22 16:16] LABS: ALBUMIN 3.1 GM/DL (3.2-5.2); ALT/SGPT 27 U/L (12-78); BILIRUBIN,TOTAL 0.2 MG/DL (0.2-1.0); BLOOD UREA NITROGEN 14 MG/DL (7-18); CALCIUM LEVEL 9.2 MG/DL (8.5-10.1); CARBON DIOXIDE LEVEL 27 MEQ/L (21-32); CHLORIDE LEVEL 109 MEQ/L (98-107); CREATININE FOR GFR 0.54 MG/DL (0.55-1.30); GLOMERULAR FILTRATION RATE > 60.0 (>58); GLUCOSE, FASTING 153 MG/DL (70-100); POTASSIUM SERUM 3.6 MEQ/L (3.5-5.1); SODIUM LEVEL 143 MEQ/L (136-145); TOTAL PROTEIN 6.5 GM/DL (6.4-8.2)
== END ==
LOC: M LAB REF 14:21
PROVIDERS: ATTEND Physician Assistant
DX: Z48.812 Encounter for surgical aftercare following surgery on the circulatory system (principal); I70.612 Atherosclerosis of nonbiological bypass graft(s) of the extremities with intermittent claudication, left leg

== ENCOUNTER 2023-12-06 11:52 | Outpatient (RCR) | payer MEDICARE ==
[~2023-12-06 11:52] MED LIST changes: -GABA-283 PO; +GABA-284 PO; +MECL-209 PO; -MECL1TAB31 PO
== END 2023-12-07 ==
LOC: M PT 11:52
PROVIDERS: ATTEND Registered Nurse
DX: I89.0 Lymphedema, not elsewhere classified (principal)

== ENCOUNTER 2024-01-04 12:42 | Outpatient (RCR) | payer MEDICARE | END 2024-01-07 | LOC: M PT 12:42 | PROVIDERS: ATTEND Registered Nurse | DX: I89.0 Lymphedema, not elsewhere classified (principal) ==

== ENCOUNTER 2024-01-20 12:57 | Outpatient (RCR) | payer MEDICARE | END 2024-02-06 | LOC: M PT 12:57 | PROVIDERS: ATTEND Registered Nurse | DX: I89.0 Lymphedema, not elsewhere classified (principal) ==